=== PATIENT | male | born 1965 | race Caucasian/White ===

== ENCOUNTER → 2017-08-19 | Outpatient (CLI) | payer OTHER ==
[~2017-08-19] MED LIST: ARIP1TAB8 PO; CETI10TA10 PO; FISHOIL PO; MELO15TA10 PO; OMEP20CA9 PO; RISP1TAB68 PO; SIMV20TA5 PO; VENL100T2 PO; [UNRECOGNIZED DRUG - OTHER] PO
== END | disposition home or self-care (01) ==
LOC: C.LAB1850 10:54
PROVIDERS: ATTEND Internal Medicine Endocrinology, Diabetes & Metabolism
DX: E29.1 Testicular hypofunction (principal)

== ENCOUNTER 2018-05-27 03:27 | Inpatient (IN) | payer OTHER ==
[~2018-05-27] VITALS: Ht 185.4 cm; Wt 125.0 kg
--- NOTE | 2018-05-27 03:52 | EMERGENCY ROOM VISIT NOTE ---
History Report prepared by Alfredo: Reyes Lozada Under the Supervision of: Dr. Negrita Redman D.O. First contact with patient: 03:42 Chief Complaint: RESPIRATORY PROBLEMS Stated Complaint: HAVING HARD TIME BREATHING,SEVERE IN LWR RT SIDE History of Present Illness The patient is a 52 year old male who presents to the Emergency Room with complaints of constant SOB beginning today. The patient states that he started having respiratory difficulty five days ago. He notes that he was diagnosed with right-sided pneumonia and placed on Augmentin and Zithromax. He reports that he had a coughing spell last night when he laid down. The patient states that since then, he has been SOB and has been having right lower abdominal pain that stretches around to his lower back. He notes that his coughing worsens when he lies down. He reports that he becomes SOB easily when he walks around. The patient states that he did not become SOB with exertion last week before the onset of his symptoms. He notes that he took Tylenol with no relief of his symptoms. He denies any fever, chills, and leg cramping/swelling. He reports that he does not have any previous history of pneumonia, diabetes, hernias, and hypertension. The patient states that he has a history of depression and is visually impaired. He notes that he has had a cholecystectomy. He reports that he does not smoke cigarettes. Source of History: patient Onset: today Position: chest Quality: other (SOB) Timing: constant Modifying Factors (Worsening): exertion Associated Symptoms: + cough, + abdominal pain, + back pain, No fevers, No chills Note: The patient also denies any leg cramping/swelling. Review of Systems See HPI for pertinent positives & negatives. A total of 10 systems reviewed and were otherwise negative. Past Medical & Surgical Medical Problems: (1) Depression (2) Pneumonia (3) Visual impairment Surgical Problems: (1) H/O knee surgery (2) H/O shoulder surgery (3) History of cholecystectomy Family History Cancer Diabetes mellitus Hypertension Social History Smoking Status: Never Smoker Marital Status: Housing Status: lives with family Occupation Status: disabled Current/Historical Medications Scheduled Aripiprazole (Abilify), 10 MG PO QPM Cetirizine Hcl (Zyrtec), 10 MG PO DAILY Cholecalciferol (Vitamin D3), 2 TAB PO DAILY Fluticasone Propionate (Nasal) (Flonase Allergy Relief), 1 SPRAY ANTHONY BID Gabapentin (Neurontin), 300 MG PO BID Hydrocortisone (Hydrocortisone), 1 APPLN TD BID Melatonin-Pyridoxine (Melatonin), 3 MG PO HS Meloxicam (Mobic), 15 MG PO DAILY Multiple Vitamins W/ Minerals (Ocuvite Eye + Multi), 2 TABS PO BID Multiple Vitamins W/ Minerals (Preservision Areds), 2 CAP PO DAILY Yxicdykd-Vskuenktoe-Lofvymknp (Bacitracin/Neomycin/Polym), 1 APPLN TD DAILY Omeprazole (Prilosec), 20 MG PO BID Simvastatin (Zocor), 40 MG PO QPM Testosterone (Androgel Pump), 40.5 MG TOP DAILY Venlafaxine Hcl (Venlafaxine Hcl Er), 1 TAB PO BID Scheduled PRN Sildenafil Citrate (Viagra), 100 MG PO UD PRN for SEXUAL ACTIVITY Allergies Coded Allergies: No Known Allergies (Verified , `, 05/27/18) Physical Exam Vital Signs Date Time Temp Pulse Resp B/P (MAP) Pulse Ox O2 Delivery O2 Flow Rate FiO2 05/27/18 05:58 99 20 131/76 93 Nasal Cannula 2.0 05/27/18 05:18 92 Nasal Cannula 2.0 05/27/18 04:18 95 05/27/18 03:31 36.6 104 24 155/95 91 Room Air Physical Exam General: Appears extremely uncomfortable with any type of movement. HEENT: Head - normocephalic and atraumatic Pupils are equal, round, and reactive to light. Extraocular eye muscles are intact, and sclera are anicteric. Nose - moist nasal mucosa without discharge. Mouth - moist buccal mucosa. Oropharynx is nonerythematous and there is no tonsillar exudate or edema noted. Neck: Supple; no JVD, nuchal rigidity, cervical lymphadenopathy, or auscultated bruits. Heart: Regular rate and rhythm. There is a normal S1 and S2 with no murmurs, clicks, or gallops appreciated. Lungs: No wheezes or rales. Diminished breath sounds with rhonchi over entire right lower lung. Abdomen: Soft, nondistended, with good bowel sounds. There are no palpable pulsatile masses or hepatosplenomegaly. There is no guarding, rigidity, or rebound noted. Pain to palpation over RLQ. Back: Pain to palpation over right flank and right lower back. Extremities: No evidence of cyanosis, clubbing, or edema. There are easily palpable peripheral pulses. Skin: warm and dry with good turgor and no rashes. Medical Decision & Procedures ER Provider Diagnostic Interpretation: Radiology results as stated below per my review and the radiologist's interpretation: CTA CHEST: No evidence for pulmonary embolism. Patchy ground-glass opacities at the lung bases and in the perihilar regions. Interlobular septal thickening at the lung bases and peribronchial thickening and small bilateral layering pleural effusions noted posteriorly. The constellation of these findings is most consistent with pulmonary edema pattern. Infection, predominantly in the ore consolidative areas of the lower lobes is difficult to entirely exclude. The thoracic aorta is unremarkable. The cardiac chambers are prominent. No pericardial effusion. Nonspecific paratracheal and prevascular lymph nodes are presumed reactive. Cholecystectomy clips incidentally noted. Radiologist: Héctor Armenta MD. Laboratory Results 05/27/18 04:00 Red Blood Count 5.15, Mean Corpuscular Volume 91.8, Mean Corpuscular Hemoglobin 30.9, Mean Corpuscular Hemoglobin Concent 33.6, Mean Platelet Volume 10.7, Neutrophils (%) (Auto) 80.6, Lymphocytes (%) (Auto) 8.3, Monocytes (%) (Auto) 9.5, Eosinophils (%) (Auto) 0.8, Basophils (%) (Auto) 0.2, Neutrophils # (Auto) 8.66, Lymphocytes # (Auto) 0.89, Monocytes # (Auto) 1.02, Eosinophils # (Auto) 0.09, Basophils # (Auto) 0.02 05/27/18 04:00 Test 05/27/18 04:00 White Blood Count 10.74 K/uL (4.8-10.8) Red Blood Count 5.15 M/uL (4.7-6.1) Hemoglobin 15.9 g/dL (14.0-18.0) Hematocrit 47.3 % (42-52) Mean Corpuscular Volume 91.8 fL (80-100) Mean Corpuscular Hemoglobin 30.9 pg (25-34) Mean Corpuscular Hemoglobin Concent 33.6 g/dl (32-36) Platelet Count 211 K/uL (130-400) Mean Platelet Volume 10.7 fL (7.4-10.4) Neutrophils (%) (Auto) 80.6 % Lymphocytes (%) (Auto) 8.3 % Monocytes (%) (Auto) 9.5 % Eosinophils (%) (Auto) 0.8 % Basophils (%) (Auto) 0.2 % Neutrophils # (Auto) 8.66 K/uL (1.4-6.5) Lymphocytes # (Auto) 0.89 K/uL (1.2-3.4) Monocytes # (Auto) 1.02 K/uL (0.11-0.59) Eosinophils # (Auto) 0.09 K/uL (0-0.5) Basophils # (Auto) 0.02 K/uL (0-0.2) RDW Standard Deviation 45.7 fL (36.4-46.3) RDW Coefficient of Variation 13.6 % (11.5-14.5) Immature Granulocyte % (Auto) 0.6 % Immature Granulocyte # (Auto) 0.06 K/uL (0.00-0.02) Anion Gap 10.0 mmol/L (3-11) Est Creatinine Clear Calc Drug Dose 103.3 ml/min Estimated GFR () 84.0 Estimated GFR (Non- 72.5 BUN/Creatinine Ratio 17.4 (10-20) Calcium Level 8.4 mg/dl (8.5-10.1) Troponin I < 0.015 ng/ml (0-0.045) Pro-B-Type Natriuretic Peptide 1116 pg/ml (0-900) Laboratory results per my review. Medications Administered Medications (Trade) Dose Ordered Sig/Rachel Route Start Time Stop Time Status Last Admin Dose Admin Ketorolac Tromethamine (Toradol Inj) 30 mg NOW STAT IV 05/27/18 03:56 05/27/18 03:57 DC 05/27/18 04:08 30 MG Oxycodone/ Acetaminophen (Percocet 5-325mg Tab) 2 tab NOW STAT PO 05/27/18 03:56 05/27/18 03:57 DC 05/27/18 04:09 2 TAB Hydromorphone HCl (Dilaudid Inj) 2 mg NOW STAT IV 05/27/18 05:21 05/27/18 05:22 DC 05/27/18 05:26 2 MG Procedure Medications Administered: Oxycodone/Acetaminophen 2 tab PO, Toradol Inj 30mg IV, and Dilaudid Inj 2mg IV. ECG Per My Interpretation Indication: SOB/dyspnea Rate (beats per minute): 97 Rhythm: normal sinus Findings: LBBB, no ectopy, other (No obvious ischemia) Comparison ECG Date: no prior available ED Course 0344: The patient was evaluated in room A2. A complete history and physical examination were performed. Nursing notes and previous electronic medical records were reviewed. IV lock was established and labs were drawn as above. An EKG was obtained as described above. 0356: Oxycodone/Acetaminophen 2 tab PO, Toradol Inj 30mg IV 0519: I reevaluated and updated the patient. He only had mild pain relief. He notes that his pain worsens when he takes a deep breath. His oxygen saturation dropped to 88% and he was placed on supplemental oxygen. The patient will go for CT scan of the chest. 0521: Dilaudid Inj 2mg IV 0609: Upon reevaluation, I discussed findings and results with the patient. He verbalized agreement of the treatment plan. I spoke with Dr. Kong, resident disability liaison officer for Dr. Paul of the [facility] Hospitalist Service. The patient will be evaluated for further management and care. 0614: I rechecked the patient. The pain medication seemed to help with his abdominal pain and back pain. Medical Decision The patient is a 52 year old male who presents to the Emergency Room with complaints of constant SOB beginning today. Differential diagnoses include: PE, empyema, CHF, pneumonia, and pleural effusion. Lab Results Show: BNP 1116. Negative troponin. Glucose 123. BUN 20. Creatinine 1.1. Normal H&H. Normal WBC. This is a 52-year-old male patient presents to the emergency department with significant right lower quadrant and right flank pain that developed after a coughing fit where he strained that part of his abdomen and back. While I was examining the patient and discussing the situation with him, he appeared quite dyspneic with conversation. He was noted to be hypoxic. He was placed on supplemental oxygen. He was given analgesia to control the pain. He went for a CT scan of the chest to rule out PE. This revealed no evidence of PE but there was some opacities bilaterally with pulmonary edema. I suggested the patient be admitted. I discussed the case with the [facility] Hospitalist and they will evaluate for further management. The patient has no history of congestive heart failure. It seems that he is failing outpatient therapy for his pneumonia. He is hemodynamic is stable at this time. Medication Reconcilliation Current Medication List: was personally reviewed by me Blood Pressure Screening Patient's blood pressure: Elevated blood pressure Elevated blood pressure will be monitored by hospitalist. Consults Time Called: 607 Consulting Physician: Dr. Kong, resident disability liaison officer for Dr. Paul - Hospitalist, [facility] Returned Call: 06 Discussed the patient's case. The patient will be evaluated for further management. Impression Primary Impression: Hypoxia Additional Impression: Pulmonary edema Scribe Attestation The scribe's documentation has been prepared under my direction and personally reviewed by me in its entirety. I confirm that the note above accurately reflects all work, treatment, procedures, and medical decision making performed by me. Departure Information Dispostion Being Evaluated By Hospitalist Referrals Matthew Andrew PA-C (PCP) Patient Instructions My [facility] Problem Qualifiers Additional Impression: Pulmonary edema Chronicity: acute Qualified Codes: J81.0 - Acute pulmonary edema
[2018-05-27] MEDS ORDERED: OXYCODONE/ACETAMINOPHEN 5-325 TAB PO STA (03:56)
[2018-05-27] MEDS ORDERED: KETOROLAC TROMETHAMINE 30 MG/ML VIAL IV STA (03:56)
[2018-05-27] MEDS ORDERED: OPTIRAY 320 IV PRN (04:00)
[2018-05-27 04:11] LABS: BASO % 0.2 %; BASO ABS # 0.02 K/uL (0-0.2); EOS % 0.8 %; EOS ABS # 0.09 K/uL (0-0.5); HEMATOCRIT 47.3 % (42-52); HEMOGLOBIN 15.9 g/dL (14.0-18.0); IG# 0.06 K/uL (0.00-0.02); LYMPH % 8.3 %; LYMPH ABS # 0.89 K/uL (1.2-3.4); MEAN CELL VOLUME 91.8 fL (80-100); MEAN CORPUSCULAR HEMOGLOBIN 30.9 pg (25-34); MEAN CORPUSCULAR HGB CONC 33.6 g/dl (32-36); MEAN PLATELET VOLUME 10.7 fL (7.4-10.4); MONO % 9.5 %; MONO ABS # 1.02 K/uL (0.11-0.59); NEUT % 80.6 %; NEUT ABS # 8.66 K/uL (1.4-6.5); PLATELET COUNT 211 K/uL (130-400); RED CELL DISTRIBUTION WIDTH CV 13.6 % (11.5-14.5); RED CELL DISTRIBUTION WIDTH SD 45.7 fL (36.4-46.3); WHITE BLOOD COUNT 10.74 K/uL (4.8-10.8)
[2018-05-27 04:32] LABS: BLOOD UREA NITROGEN 20 mg/dl (7-18); CALCIUM 8.4 mg/dl (8.5-10.1); CARBON DIOXIDE 21 mmol/L (21-32); CREATININE 1.14 mg/dl (0.60-1.40); GLUCOSE 123 mg/dl (70-99); POTASSIUM 4.2 mmol/L (3.5-5.1); SODIUM 139 mmol/L (136-145)
[2018-05-27] MEDS ORDERED: HYDROmorphone INJ 2 MG/ML SYR/VIAL IV STA (05:21)
[2018-05-27] MEDS ORDERED: SIMV40TA2 PO (06:05)
[2018-05-27] MEDS ORDERED: CHOL1000 PO (06:05)
[2018-05-27] MEDS ORDERED: VENL150T33 PO (06:06)
[2018-05-27] MEDS ORDERED: [UNRECOGNIZED DRUG - CODE] (06:09)
[2018-05-27] MEDS ORDERED: GABA-113 PO (06:09)
[2018-05-27] MEDS ORDERED: FLUT0.15 NAE (06:09)
[2018-05-27] MEDS ORDERED: SILD100T PO (06:14)
[2018-05-27] MEDS ORDERED: MULT15TA2 PO (06:17)
[2018-05-27] MEDS ORDERED: MELA1TAB3 PO (06:18)
[2018-05-27] MEDS ORDERED: ECHCCRMCMP TD (06:20)
[2018-05-27] MEDS ORDERED: TEST5GEL TOP (06:23)
[2018-05-27] MEDS ORDERED: NEOMOIN TD (06:24)
[2018-05-27] MEDS ORDERED: MULTCAP33 PO (06:25)
--- NOTE | 2018-05-27 06:58 | DIAGNOSTIC IMAGING REPORT ---
(CHEST FOR PE) ANGIO WITH CT DOSE: 733.71 mGy.cm HISTORY: 52 years-old Male with . Presents with acute shortness of breath and reported right-sided pneumonia. TECHNIQUE: Multiple CTA images of the chest were obtained after the intravenous administration of 104 ml Optiray 320. Coronal and sagittal MIPS were obtained from the axial data set and were submitted for review. A dose lowering technique was utilized adhering to the principles of ALARA. COMPARISON: None. FINDINGS: CTA: Mild multichamber cardiac enlargement. No pericardial effusion. Coronary arterial calcifications are noted. The left heart structures and aorta are not well opacified secondary to contrast bolus timing. No thoracic aortic aneurysm or dissection. The imaged great vessels appear patent. The pulmonary arterial tree is opacified to the level of the proximal subsegmental branches and demonstrates no focal filling defects to suggest pulmonary thromboembolic disease. CT CHEST: Homogeneous appearance of the thyroid. Enlarged subcarinal lymph node measures 2.1 x 1.2 cm. Mildly enlarged 1.0 cm lower left hilar lymph node. Paratracheal lymph nodes measure up to 11 mm in short axis. AP window lymph nodes measure up to 9 mm. Small layering bilateral pleural effusions. Bilateral multi segmental distribution of intralobular septal thickening with thickening of the bronchovascular bundles. Layering groundglass densities are seen about the fissures. Bronchovascular distribution of consolidative and groundglass opacities are noted within all lobes bilaterally, predominantly within the basal segments of the lower lobes. The central airways are patent. Prior cholecystectomy. No acute process of the imaged upper abdomen. Soft tissues are within normal limits. The bones appear intact. Multilevel spondylitic spurring of the spine. IMPRESSION: 1. No acute aortic pathology or evidence of pulmonary thromboembolic disease. 2. Cardiomegaly with small layering bilateral pleural effusions and bilateral interlobular septal thickening is noted along with thickening of the bronchovascular bundles suggesting interstitial pulmonary edema. Additionally, there are scattered bronchovascular distribution of consolidative and groundglass opacities within all lobes bilaterally, predominantly within the basal segments of the lower lobes suggesting alveolar pulmonary edema with superimposed bronchopneumonia also within the differential. 3. Prior cholecystectomy. The above report was generated using voice recognition software. It may contain grammatical, syntax or spelling errors. Electronically signed by: Rodrick Jiang M.D. 05/27/2018 6:56 AM Dictated Date/Time: 05/27/2018 6:48 AM
[2018-05-27 07:40] VITALS: O2SAT 93; Ht 185.4 cm; Wt 125.0 kg
[2018-05-27] MEDS ORDERED: FUROSEMIDE 40 MG/4 ML VIAL IV STA (08:38)
[2018-05-27] MEDS ORDERED: ACETAMINOPHEN 500 MG TAB PO PRN (08:45)
[2018-05-27] MEDS ORDERED: MAGNESIUM HYDROXIDE SUSP 30 ML UDC PO PRN (08:45)
[2018-05-27] MEDS ORDERED: KETOROLAC TROMETHAMINE 30 MG/ML VIAL IV PRN (08:45)
[2018-05-27] MEDS ORDERED: ACETAMINOPHEN 325 MG TAB PO PRN (08:45)
[2018-05-27] MEDS ORDERED: HYDROCODONE/ACETAMINOPHEN 7.5/325MG TAB PO PRN (08:45)
[2018-05-27] MEDS ORDERED: ONDANSETRON INJ 2 MG/ML 2 ML VIAL IV PRN (08:45)
[2018-05-27] MEDS ORDERED: ALUMINUM/MAGNESIUM/SIMETH (MAALOX MAX) 30 ML UDC PO PRN (08:45)
[2018-05-27] MEDS ORDERED: GUAIFENESIN/CODEINE 100MG/10MG 5ML UDC PO PRN (08:45)
[2018-05-27] MEDS ORDERED: NITROGLYCERIN 0.4 MG SL PER TAB CHARGE SL PRN (08:45)
[2018-05-27] MEDS ORDERED: MULTIPLE VITAMINS PO SCH (09:00)
[2018-05-27] MEDS ORDERED: MINERALS PO SCH (09:00)
[2018-05-27] MEDS ORDERED: VENLAFAXINE HCL XR 150 MG CAPXR PO SCH (09:00)
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
[2018-05-27 09:54] LABS: ALBUMIN 3.4 gm/dl (3.4-5.0); TOTAL PROTEIN 7.7 gm/dl (6.4-8.2)
[2018-05-27 11:03] VITALS: BP 107/73; PULSE 90; TEMP 36.5; O2SAT 95
[2018-05-27] MEDS ORDERED: PERFLUTREN LIPID MICROSPHERE (DEFINITY) IV ONE (11:26)
[2018-05-27] MEDS: ENOXAPARIN 40 MG/0.4 ML SYR SC SCH (11:57)
[2018-05-27] MEDS: FLUTICASONE PROPIONATE NA SPR 16 GM BTL NAE SCH ×2 (11:57→20:09)
[2018-05-27] MEDS: CEROVITE ADV FORMULA TAB PO SCH ×2 (12:00→20:10)
[2018-05-27] MEDS: GUAIFENESIN 600 MG TABCR PO SCH ×2 (12:02→20:10)
[2018-05-27] MEDS: LEVOFLOXACIN 750 MG TAB PO SCH (12:02)
[2018-05-27] MEDS: GABAPENTIN 300 MG CAP PO SCH ×2 (12:03→20:10)
[2018-05-27] MEDS: CETIRIZINE HCL 10 MG TAB PO SCH (12:03)
[2018-05-27] MEDS: CHOLECALCIFEROL 1000 INTER.UNIT TAB PO SCH (12:03)
[2018-05-27] MEDS: PANTOprazole SOD 40 MG TAB PO SCH (12:04)
--- NOTE | 2018-05-27 12:08 | ECHOCARDIOGRAM REPORT ---
*NOTICE TO RECEIVING CONSTITUTION PARTY AGENCY This information is strictly Confidential and protected under [place] law. [place] law prohibits you from making any further disclosure of this information unless further disclosure is expressly permitted by the written consent of the person to whom it pertains or is authorized by law. A general authorization for the release of medical or other information is not sufficient for this purpose. Hospital accepts no responsibility if the information is made available to any other person, INCLUDING THE PATIENT. Interpretation Summary * Name: ADRIANA MARCELINO Study Date: 05/27/2018 10:43 AM BP: 111/70 mmHg * Patient Location: [facility] HR: 78 * : 1965 (M/d/yyyy) Gender: Male Height: 73 in * Age: 52 yrs Ethnicity: CA Weight: 279 lb * Ordering Physician: Sebastian Lee * Referring Physician: Self, Referred * Performed By: Henny Husain RDCS * * Reason For Study: CHF, LEFT BUNDLE BRANCH BLOCK * BSA: 2.5 m2 * -- Conclusions -- * 1. Moderately dilated LV with normal wall thickness.. * 2. Severe global LV dysfunction. LVEF 20-25%. Abnormal septal motion consistent with conduction abnormality. * 3. Normal RV size and function. * 4. Mild mitral regurgitation. * 5. No prior studies for comparison. Procedure Details * A contrast injection of Definity was performed to improve assessment of LV function. * Contrast was injected into an intravenous site in the right arm. * One vial of Definity ultrasound contrast was diluted in normal saline to a total volume of 10 ml. A total of '2' ml of solution was administered during imaging. * Lot # [id number] of Definity utilized for procedure. * Expiration date APR 23. * The attending nurse who injected the contrast agent was BASIL EPPS RN. Left Ventricle * The left ventricle is moderately dilated. * There is normal left ventricular wall thickness. * Ejection Fraction = 20-25%. * There is severe global hypokinesis of the left ventricle. * Septal motion is consistent with conduction abnormality. Right Ventricle * The right ventricle is grossly normal size. * The right ventricular systolic function is normal as assessed by tricuspid annular plane systolic excursion (TAPSE) (normal >1.5 cm). Atria * The left atrium is moderately dilated. * Right atrial size is normal. * No ASD detected; PFO is not assessed. Mitral Valve * The mitral valve is grossly normal. * There is no mitral valve stenosis. * There is mild mitral regurgitation. Aortic Valve * The aortic valve opens well. * The aortic valve is trileaflet. * No hemodynamically significant valvular aortic stenosis. * There is no significant aortic regurgitation. Pulmonic Valve * The pulmonary valve is inadequately visualized, but the Doppler data is adequate for interpretation. * There is no pulmonic valvular stenosis. * Trace pulmonic valvular regurgitation. Great Vessels * The aortic root and proximal ascending aorta are normal sized. Pericardium/Pleural * There is no pericardial effusion. Great Vessels * IVC < 2.1, < 50% change with respiration. Est RA 8 mmHg. MMode 2D Measurements and Calculations IVSd 0.84 cm IVSs 0.91 cm LVIDd 6.4 cm LVIDs 5.7 cm LVPWd 1.2 cm LVPWs 1.4 cm IVS/LVPW 0.70 FS 9.8 % EDV(Teich) 205.4 ml ESV(Teich) 162.3 ml EF(Teich) 21.0 % EDV(cubed) 256.9 ml ESV(cubed) 188.7 ml EF(cubed) 26.6 % % IVS thick 8.6 % % LVPW thick 17.3 % LV mass(C)d 279.1 grams LV mass(C)dI 112.6 grams/m\S\2 LV mass(C)s 278.1 grams LV mass(C)sI 112.2 grams/m\S\2 SV(Teich) 43.0 ml SI(Teich) 17.4 ml/m\S\2 SV(cubed) 68.3 ml SI(cubed) 27.5 ml/m\S\2 Ao root diam 3.4 cm Ao root area 8.9 cm\S\2 LA dimension 4.4 cm LA/Ao 1.3 LVAd ap4 51.2 cm\S\2 LVLd ap4 9.4 cm EDV(MOD-sp4) 226.4 ml EDV(sp4-el) 236.6 ml LVAs ap4 41.6 cm\S\2 LVLs ap4 8.1 cm ESV(MOD-sp4) 175.2 ml ESV(sp4-el) 181.1 ml EF(MOD-sp4) 22.6 % EF(sp4-el) 23.4 % LVAd ap2 33.1 cm\S\2 LVLd ap2 8.2 cm EDV(MOD-sp2) 109.9 ml EDV(sp2-el) 113.5 ml LVAs ap2 28.6 cm\S\2 LVLs ap2 8.0 cm ESV(MOD-sp2) 82.7 ml ESV(sp2-el) 87.1 ml EF(MOD-sp2) 24.7 % EF(sp2-el) 23.2 % LVLd %diff -14.67 % EDV(MOD-bp) 170.2 ml LVLs %diff -1.33 % ESV(MOD-bp) 120.2 ml EF(MOD-bp) 29.4 % SV(MOD-sp4) 51.2 ml SI(MOD-sp4) 20.7 ml/m\S\2 SV(MOD-sp2) 27.2 ml SI(MOD-sp2) 11.0 ml/m\S\2 SV(MOD-bp) 50.1 ml SI(MOD-bp) 20.2 ml/m\S\2 SV(sp4-el) 55.5 ml SI(sp4-el) 22.4 ml/m\S\2 SV(sp2-el) 26.4 ml SI(sp2-el) 10.6 ml/m\S\2 Doppler Measurements and Calculations MV E max ravi 67.2 cm/sec MV A max ravi 37.4 cm/sec MV E/A 1.8 MV dec time 0.15 sec Ao V2 max 98.1 cm/sec Ao max PG 3.9 mmHg Ao max PG (full) 2.6 mmHg LV V1 max PG 1.3 mmHg LV V1 max 56.6 cm/sec
[2018-05-27 15:04] VITALS: BP 125/83; PULSE 82; TEMP 36.6; O2SAT 94
[2018-05-27] MEDS ORDERED: POTASSIUM CHLORIDE 20 MEQ TABCR PO STA (15:36)
[2018-05-27] MEDS ORDERED: FUROSEMIDE INJ 40 MG in SYRINGE 0 ML IV ONE (16:30)
--- NOTE | 2018-05-27 17:21 | Cardiology Consultation ---
Cardiology Consultation Date of Consultation: May 27, 2018. Requesting Physician: Dr. 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 He and his do note that he has had dyspnea on exertion when walking to his mailbox and on other occasions for probably close to a year, he has actually had appointments regarding it through the [place] system but does not believe he has had an electrocardiogram or any other cardiac testing. His symptoms have worsened recently, possibly related to eating a lot of salty food over the weekend, but he also developed right flank pain which prompted a visit to the emergency room. In the emergency room he was found to be in congestive heart failure and echocardiography has shown severe left ventricular dysfunction. He was therefore admitted today. He also describes on further questioning orthopnea and a cough with laying down as well as peripheral edema. He has never had chest discomfort and does not have chest discomfort with exertion. He was recently diagnosed with "pneumonia ", however that was several days ago when he presented with worsening shortness of breath it does not sound as though chest x-ray or other cardiac evaluation was performed. He was started on antibiotic. Past Medical/Surgical History (1) Visual impairment (2) H/O knee surgery (3) H/O shoulder surgery (4) History of cholecystectomy Family History Cancer Diabetes mellitus Hypertension Social History Smoking Status: Never Smoker History of Alcohol Use: Yes ("depends") Review of Systems Constitutional: No fever, No weight loss, No weakness Respiratory: + see HPI, + cough, + shortness of breath, + dyspnea on exertion, No wheezing Cardiac: + see HPI, + orthopnea, + edema, No chest pain, No PND, No palpitations Abdomen: No pain, No nausea, No vomiting, No diarrhea, No GI bleeding Male : No urinary frequency, No nocturia more than once/night, No slowing stream, No sexual dysfunction Neurologic: No paralysis, No weakness, No numbness/tingling, No balance problems Heme: No abnormal bleeding/bruising, No clotting problems Endo: No fatigue Skin: No problem reported All Other Systems: Reviewed and Negative Allergies Coded Allergies: No Known Allergies (Verified , `, 05/27/18) Medications Current Inpatient Medications Medications (Trade) Dose Ordered Sig/Rachel Route Start Time Stop Time Status Last Admin Dose Admin Ioversol (Optiray 320) 125 ml UD PRN IV 05/27/18 04:00 05/31/18 03:59 Enoxaparin Sodium (Lovenox Inj) 40 mg Q24H SC 05/27/18 11:00 06/26/18 10:59 05/27/18 11:57 40 MG Acetaminophen (Tylenol Tab) 650 mg Q4H PRN PO 05/27/18 08:45 06/26/18 08:44 Al Hydrox/Mg Hydrox/Simethicone (Maalox Max Susp) 15 ml Q4H PRN PO 05/27/18 08:45 06/26/18 08:44 Magnesium Hydroxide (Milk Of Magnesia Susp) 30 ml Q12H PRN PO 05/27/18 08:45 06/26/18 08:44 Ondansetron HCl (Zofran Inj) 4 mg Q6H PRN IV 05/27/18 08:45 06/26/18 08:44 Nitroglycerin (Nitrostat Tab) 0.4 mg UD PRN SL 05/27/18 08:45 06/26/18 08:44 Aripiprazole (Abilify Tab) 10 mg QPM PO 05/27/18 21:00 06/26/18 20:59 Cetirizine HCl (zyrTEC TAB) 10 mg DAILY PO 05/27/18 09:00 06/26/18 08:59 05/27/18 12:03 10 MG Cholecalciferol (Vitamin D Tab) 2,000 inter.unit DAILY PO 05/27/18 09:00 06/26/18 08:59 05/27/18 12:03 2,000 INTER.UNIT Fluticasone Propionate (Flonase Nasal [place]) 2 sprays BID ANTHONY 05/27/18 09:00 06/26/18 08:59 05/27/18 11:57 2 SPRAYS Gabapentin (Neurontin Cap) 300 mg BID PO 05/27/18 09:00 06/26/18 08:59 05/27/18 12:03 300 MG Multivitamins/ Minerals (Multivitamin W/ Minerals Tab) 2 tab BID PO 05/27/18 09:00 06/26/18 08:59 05/27/18 12:00 2 TAB Simvastatin (Zocor Tab) 40 mg QPM PO 05/27/18 21:00 06/26/18 20:59 Pantoprazole Sodium (Protonix Tab) 40 mg QAM PO 05/27/18 09:00 06/26/18 08:59 05/27/18 12:04 40 MG Levofloxacin (Levaquin Tab) 750 mg DAILY@11 PO 05/27/18 11:00 06/03/18 10:59 05/27/18 12:02 750 MG Ketorolac Tromethamine (Toradol Inj) 30 mg Q6H PRN IV 05/27/18 08:45 06/01/18 08:44 Acetaminophen (Tylenol Tab) 1,000 mg Q8 PRN PO 05/27/18 08:45 06/26/18 08:44 Acetaminophen/ Hydrocodone Bitart ([place] 7.5/325 Tab) 1 tab Q4H PRN PO 05/27/18 08:45 06/10/18 08:44 Codeine Phosphate/ Guaifenesin (Robitussin-AC Sugar Free Syrup) 5 ml Q6H PRN PO 05/27/18 08:45 06/26/18 08:44 Guaifenesin (Mucinex Contr Rel Tab) 600 mg Q12 PO 05/27/18 09:00 06/26/18 08:59 05/27/18 12:02 600 MG Furosemide 40 mg/ Syringe 4 ml @ 4 mls/min ONE ONCE IV 05/27/18 16:30 05/27/18 16:31 Magnesium Oxide (Mag-Ox Tab) 400 mg BID PO 05/27/18 21:00 06/26/18 20:59 Physical Exam Vital Signs Past 12 Hours Date Time Temp Pulse Resp B/P (MAP) Pulse Ox O2 Delivery O2 Flow Rate FiO2 05/27/18 15:04 36.6 82 20 125/83 (97) 94 Nasal Cannula 2.0 05/27/18 11:03 36.5 90 20 107/73 (84) 95 Nasal Cannula 2.0 05/27/18 10:00 98 20 106/73 98 Nasal Cannula 05/27/18 09:00 82 20 111/70 95 Nasal Cannula 2.0 05/27/18 08:13 93 12 120/82 96 Nasal Cannula 3.0 05/27/18 07:40 93 Nasal Cannula 3.0 05/27/18 07:10 93 Nasal Cannula 3.0 05/27/18 06:50 94 05/27/18 06:50 88 16 108/81 93 Nasal Cannula 3.0 05/27/18 05:58 99 20 131/76 93 Nasal Cannula 2.0 05/27/18 05:18 92 Nasal Cannula 2.0 05/27/18 04:18 95 Constitutional: General Apperance: heathly-appearing Level of Distress: NAD Psychiatric: Mental Status: active & alert Head: normocephalic Eyes: EOM: EOMI ENMT: normal ENT inspection, hearing grossly normal Neck: supple, no masses Lungs: Respiratory effort: no dyspnea, good air movement Auscultation: no wheezing, rales/crackles on the left, rales/crackles on the right Cardiovascular: Heart Auscultation: RRR, no murmurs, no rubs, no gallops Peripheral Pulses: Bruits: none appreciated Abdomen: Bowel Sounds: normal Inspection & Palpation: soft, no tenderness, guarding & rebound, no masses Musculoskeletal: normal strength (5/5 throughout) Neurologic: Cranial Nerves: grossly intact Sensation: grossly intact Data Laboratory Results: Last 24 Hours Test 05/27/18 04:00 White Blood Count 10.74 K/uL Red Blood Count 5.15 M/uL Hemoglobin 15.9 g/dL Hematocrit 47.3 % Mean Corpuscular Volume 91.8 fL Mean Corpuscular Hemoglobin 30.9 pg Mean Corpuscular Hemoglobin Concent 33.6 g/dl Platelet Count 211 K/uL Mean Platelet Volume 10.7 fL Neutrophils (%) (Auto) 80.6 % Lymphocytes (%) (Auto) 8.3 % Monocytes (%) (Auto) 9.5 % Eosinophils (%) (Auto) 0.8 % Basophils (%) (Auto) 0.2 % Neutrophils # (Auto) 8.66 K/uL Lymphocytes # (Auto) 0.89 K/uL Monocytes # (Auto) 1.02 K/uL Eosinophils # (Auto) 0.09 K/uL Basophils # (Auto) 0.02 K/uL RDW Standard Deviation 45.7 fL RDW Coefficient of Variation 13.6 % Immature Granulocyte % (Auto) 0.6 % Immature Granulocyte # (Auto) 0.06 K/uL Prothrombin Time 10.0 SECONDS Prothromb Time International Ratio 1.0 Sodium Level 139 mmol/L Potassium Level 4.2 mmol/L Chloride Level 108 mmol/L Carbon Dioxide Level 21 mmol/L Anion Gap 10.0 mmol/L Blood Urea Nitrogen 20 mg/dl Creatinine 1.14 mg/dl Est Creatinine Clear Calc Drug Dose 103.3 ml/min Estimated GFR () 84.0 Estimated GFR (Non- 72.5 BUN/Creatinine Ratio 17.4 Random Glucose 123 mg/dl Calcium Level 8.4 mg/dl Magnesium Level 2.1 mg/dl Total Bilirubin 0.3 mg/dl Direct Bilirubin 0.1 mg/dl Aspartate Amino Transf (AST/SGOT) 32 U/L Alanine Aminotransferase (ALT/SGPT) 35 U/L Alkaline Phosphatase 116 U/L Troponin I < 0.015 ng/ml C-Reactive Protein 1.31 mg/dl Pro-B-Type Natriuretic Peptide 1116 pg/ml Total Protein 7.7 gm/dl Albumin 3.4 gm/dl Procalcitonin 0.08 ng/ml Thyroid Stimulating Hormone (TSH) 0.488 uIu/ml Imaging: His echocardiogram shows moderately dilated left ventricle with severe global left ventricular dysfunction and ejection fraction of 20-25%. No significant valvular abnormalities although he does have mild mitral regurgitation. The right ventricle is normal in size and function. EKG: His electrocardiogram this admission shows sinus rhythm with a left bundle branch block pattern and a QRS duration of 154 ms. Telemetry reviewed: Sinus rhythm with PVCs Assessment & Plan 1. Congestive heart failure: He presents with congestive heart failure which is symptomatically much worse over the last week or less, possibly related to eating a lot of salty food the weekend. It sounds as though this is on top of long-standing difficulty with exertion, possibly going back about 1 year. This appears to be due to cardiomyopathy which I suspect has been present for some time. He has not had cardiovascular test so we cannot really tell. 2. 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 I will draw some blood tests, including Lyme, SPEP, SAGE. His cardia myopathy could just be due to the left bundle branch block. We will need to exclude coronary artery disease if these other studies are negative, I would target May 29, 2018 possible. We can discuss this tomorrow. I would like to start him on heart failure medications, tonight I will start carvedilol and tomorrow low-dose SAGE inhibitors. Discussed medical therapy with him and his . 3. Left bundle-branch block: As far as I know he has not had an electrocardiogram for so we cannot determine how long he has had this pattern. It can lead to cardiomyopathy by itself, could also be secondary to a cardiomyopathy. It makes it difficult to tell whether he has had an infarction in the past although he has no symptoms to suggest it. It does however suggest the possibility for improvement with biventricular pacing. Thank you for allowing me to participate in his care.
[2018-05-27 19:59] VITALS: BP 119/77; PULSE 80; TEMP 36.6; O2SAT 94
[2018-05-27] MEDS: SIMVASTATIN 40 MG TAB PO SCH (20:10)
[2018-05-27] MEDS: CARVEDILOL 3.125 MG TAB PO SCH (20:10)
[2018-05-27] MEDS: ARIPIprazole TAB 10 MG TAB PO SCH (20:10)
[2018-05-27] MEDS: MAGNESIUM OXIDE 400 MG TAB PO SCH (21:05)
[2018-05-27 23:08] VITALS: BP 126/76; PULSE 87; TEMP 36.7; O2SAT 93
[2018-05-28] VITALS (7 sets, daily range): BP systolic 118–125; BP diastolic 74–86; PULSE 76–89; TEMP 36.4–36.9; O2SAT 93–97
[2018-05-28 06:55] LABS: CALCIUM 8.8 mg/dl (8.5-10.1); CREATININE 0.98 mg/dl (0.60-1.40); POTASSIUM 3.8 mmol/L (3.5-5.1)
[2018-05-28] MEDS: CETIRIZINE HCL 10 MG TAB PO SCH (08:27)
[2018-05-28] MEDS: CEROVITE ADV FORMULA TAB PO SCH ×2 (08:27→21:22)
[2018-05-28] MEDS: GUAIFENESIN 600 MG TABCR PO SCH ×2 (08:28→21:22)
[2018-05-28] MEDS: CHOLECALCIFEROL 1000 INTER.UNIT TAB PO SCH (08:30)
[2018-05-28] MEDS: LISINOPRIL 2.5 MG TAB PO SCH (08:30)
[2018-05-28] MEDS: CARVEDILOL 3.125 MG TAB PO SCH ×2 (08:31→21:21)
[2018-05-28] MEDS: PANTOprazole SOD 40 MG TAB PO SCH (08:31)
[2018-05-28] MEDS: GABAPENTIN 300 MG CAP PO SCH ×2 (08:31→21:22)
[2018-05-28] MEDS: MAGNESIUM OXIDE 400 MG TAB PO SCH ×2 (08:32→21:20)
[2018-05-28] MEDS: FLUTICASONE PROPIONATE NA SPR 16 GM BTL NAE SCH ×2 (08:32→21:20)
[2018-05-28] MEDS: FUROSEMIDE INJ 40 MG in SYRINGE 0 ML IV SCH ×2 (09:50→17:13)
[2018-05-28] MEDS: POTASSIUM CHLORIDE 20 MEQ TABCR PO SCH ×2 (09:50→21:21)
[2018-05-28] MEDS: ENOXAPARIN 40 MG/0.4 ML SYR SC SCH (11:28)
[2018-05-28] MEDS: LEVOFLOXACIN 750 MG TAB PO SCH (11:28)
--- NOTE | 2018-05-28 15:21 | Cardiology Follow-Up ---
Subjective Date of Service: May 28, 2018. 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 He and his do note that he has had dyspnea on exertion when walking to his mailbox and on other occasions for probably close to a year, he has actually had appointments regarding it through the [place] system but does not believe he has had an electrocardiogram or any other cardiac testing. His symptoms have worsened recently, possibly related to eating a lot of salty food over the weekend, but he also developed right flank pain which prompted a visit to the emergency room. In the emergency room he was found to be in congestive heart failure and echocardiography has shown severe left ventricular dysfunction. He was therefore admitted today. He also describes on further questioning orthopnea and a cough with laying down as well as peripheral edema. He has never had chest discomfort and does not have chest discomfort with exertion. He was recently diagnosed with "pneumonia ", however that was several days ago when he presented with worsening shortness of breath it does not sound as though chest x-ray or other cardiac evaluation was performed. He was started on an antibiotic. Here he appeared to be in congestive heart failure and echocardiography demonstrated severe left ventricular dysfunction. He has been diuresed and started on low-dose beta blockade and SAGE inhibition. Today he feels very well. He feels much better than he did prior to admission, he is having no side effects on carvedilol and lisinopril. Social History Smoking Status: Never Smoker History of Alcohol Use: Yes ("depends") Review of Systems Respiratory: + see HPI, + cough, + shortness of breath, + dyspnea on exertion, No wheezing Cardiac: + see HPI, + orthopnea, + edema, No chest pain, No PND, No palpitations Medications Cardiovascular: Item Value Date Time Lisinopril 2.5 mg 05/28/18 0900 (Zestril Tab) QAM/PO 05/28/18 0830 Furosemide 40 mg/ 4 ml @ 4 mls/min 05/28/18 0900 Syringe BID17/IV 05/28/18 0950 Simvastatin 40 mg 05/27/18 2100 (Zocor Tab) QPM/PO 05/27/182009 Potassium Chloride 20 meq 05/28/18 0900 (Klor-Con Tab) BID/PO 05/28/18 0950 Magnesium Oxide 400 mg 05/27/18 2100 (Mag-Ox Tab) BID/PO 05/28/18 0832 Carvedilol 3.125 mg 05/27/18 2100 (Coreg Tab) BID/PO 05/28/18 0831 Enoxaparin Sodium 40 mg 05/27/18 1100 (Lovenox Inj) Q24H/SC 05/28/18 1128 Objective Vital Signs Past 12 Hours Date Time Temp Pulse Resp B/P (MAP) Pulse Ox O2 Delivery O2 Flow Rate FiO2 05/28/18 11:33 36.9 82 18 118/78 (91) 93 05/28/18 08:00 97 Room Air 2.0 05/28/18 07:24 36.8 89 18 125/83 (97) 97 05/28/18 03:40 36.8 76 20 124/74 (91) 94 Room Air Last Recorded Weight-Kilograms: 124.700 Intake & Output 8-Hour Column 05/28/18 05/29/18 05/29/18 16:00 00:00 08:00 Intake Total 690 ml Output Total 600 ml Balance 90 ml 24-Hour Column 05/29/18 08:00 Intake Total 690 ml Output Total 600 ml Balance 90 ml Physical Exam Constitutional: General Apperance: heathly-appearing Level of Distress: NAD Lungs: Respiratory effort: no dyspnea, good air movement Auscultation: breath sounds normal, no wheezing Cardiovascular: Heart Auscultation: RRR, no murmurs, no rubs, no gallops Peripheral Pulses: Bruits: none appreciated Extremities: no edema Data Laboratory Results: Last 24 Hours Test 05/27/18 17:44 05/28/18 05:45 Iron Level 113 mcg/dl Total Iron Binding Capacity 386 mcg/dl Lyme Disease IgG Antibody NEG Lyme Disease IgM Antibody NEG Sodium Level 138 mmol/L Potassium Level 3.8 mmol/L Chloride Level 106 mmol/L Carbon Dioxide Level 24 mmol/L Anion Gap 8.0 mmol/L Blood Urea Nitrogen 18 mg/dl Creatinine 0.98 mg/dl Est Creatinine Clear Calc Drug Dose 119.2 ml/min Estimated GFR () 100.9 Estimated GFR (Non- 87.1 BUN/Creatinine Ratio 18.7 Random Glucose 104 mg/dl Calcium Level 8.8 mg/dl Magnesium Level 2.2 mg/dl Ferritin 94.4 ng/ml Telemetry reviewed: Sinus rhythm, no significant arrhythmias Assessment and Plan 1. Congestive heart failure: He presented with congestive heart failure which was symptomatically much worse over the last week or less, possibly related to eating a lot of salty food over the weekend. It sounds as though this was on top of long-standing difficulty with exertion, possibly going back about 1 year. This appears to be due to cardiomyopathy which I suspect has been present for some time. He has not had cardiovascular test so we cannot really tell. He feels much better after being diuresed, his cough is improved and he is not short of breath. He has not been exerting himself therefore we do not know if he still has dyspnea on exertion. 2. Cardiomyopathy: This probably represents a nonischemic cardiomyopathy but we do need to exclude reversible causes. His Lyme screen and iron studies are negative, SPEP, SAGE are pending. His cardiomyopathy could just be due to the left bundle branch block. We will need to exclude coronary artery disease, we will plan on cardiac catheterization tomorrow. We can discuss this tomorrow. He is tolerating low-dose carvedilol and lisinopril, I would like to try to increase those prior to discharge however he only started beta-blockade yesterday and SAGE inhibition this morning so would like to wait until after his catheterization to titrate them. 3. Left bundle-branch block: As far as I know he has not had an electrocardiogram so we cannot determine how long he has had this pattern. It can lead to cardiomyopathy by itself, it could also be secondary to a cardiomyopathy. It makes it difficult to tell whether he has had an infarction in the past although he has no symptoms to suggest it. It does however suggest the possibility for improvement with biventricular pacing if no reversible causes found. I discussed catheterization with him and his family who are in the room, and I have tentatively set him up for tomorrow. Thank you for allowing me to participate in his care.
--- NOTE | 2018-05-28 17:12 | Progress Note ---
Subjective Date of Service: May 28, 2018. Subjective Pt evaluation today including: conversation w/ patient, conversation w/ family (, brother both at bedside), physical exam, chart review, lab review, review of inpatient medication list Pain: none PO Intake: normal Voiding: no voiding problems tele stable overnight patient feeling "much better" today no dyspnea at rest cough nearly resolved no further orthopnea O2 weaned off minimal CONTRERAS multiple questions from pt and his family during the visit Problem List Medical Problems: (1) Hypoxia Status: Acute (2) Pulmonary edema Status: Acute Review of Systems Constitutional: No fever, No chills Respiratory: No cough, No sputum Cardiac: No chest pain Abdomen: No pain Objective Vital Signs Date Time Temp Pulse Resp B/P (MAP) Pulse Ox O2 Delivery O2 Flow Rate FiO2 05/28/18 16:07 36.7 76 17 124/78 (93) 95 Room Air 05/28/18 11:33 36.9 82 18 118/78 (91) 93 05/28/18 08:00 97 Room Air 2.0 05/28/18 07:24 36.8 89 18 125/83 (97) 97 05/28/18 03:40 36.8 76 20 124/74 (91) 94 Room Air 05/27/18 23:59 Nasal Cannula 2.0 05/27/18 23:08 36.7 87 20 126/76 (93) 93 Room Air 05/27/18 19:59 36.6 80 18 119/77 (91) 94 Nasal Cannula 2.0 Physical Exam General Appearance: no apparent distress, + obese ENT: pharynx normal Neck: no JVD Respiratory/Chest: no respiratory distress, no accessory muscle use, + rales ( very mild residual rales b/l bases) Cardiovascular: regular rate, rhythm, no gallop, no murmur Abdomen: normal bowel sounds, non tender, soft, no organomegaly Extremities: no pedal edema Neurologic/Psychiatric: alert, oriented x 3 Skin: + pertinent finding (optifoam intact right anterior schrader ) Laboratory Results Last 24 Hours Test 05/27/18 17:44 05/28/18 05:45 Iron Level 113 mcg/dl Total Iron Binding Capacity 386 mcg/dl Lyme Disease IgG Antibody NEG Lyme Disease IgM Antibody NEG Sodium Level 138 mmol/L Potassium Level 3.8 mmol/L Chloride Level 106 mmol/L Carbon Dioxide Level 24 mmol/L Anion Gap 8.0 mmol/L Blood Urea Nitrogen 18 mg/dl Creatinine 0.98 mg/dl Est Creatinine Clear Calc Drug Dose 119.2 ml/min Estimated GFR () 100.9 Estimated GFR (Non- 87.1 BUN/Creatinine Ratio 18.7 Random Glucose 104 mg/dl Calcium Level 8.8 mg/dl Magnesium Level 2.2 mg/dl Ferritin 94.4 ng/ml Assessment and Plan 52yo male with 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 1. acute hypoxic respiratory failure - 2nd to acute systolic CHF. There was some suggestion of pneumonia on his CTA chest but pneumonia is felt to be much less likely given his lack of fever, rapid response to diuresis, normal wbc count, good appetite, etc. Cont IV diuresis. 2. acute systolic CHF - appreciate cardiology consultation and recommendations. His EF is significantly depressed at 20%. Etiology is uncertain. Lyme's testing, ferritin (for hemochromatosis), etc all normal. Could be LBBB-related. Could be ischemic. Plan - cont IV lasix BID. Agree with BB and SAGE. Cath tomorrow to r/o ischemic heart disease as the cause. Symptomatically he is markedly better than yesterday. Repeat cxr in am. If no obvious pneumonia then stop antibiotic therapy. 3. LBBB - I do not have an old EKG to compare. He has had no ischemic symptoms. Troponin was negative. Left heart cath planned for tomorrow. 4. depression with ?bipolar disorder - continue outpatient medications. 5. chronic wound, RLE schrader - appreciate wound care nurse consult and recommendations. 6. DVT proph - lovenox 40mg daily. 7. hyperlipidemia - continue statin agent; CPK and TSH both wnl. 8. FEN - AHA diet, saline lock, BMP/mag in am. 9. visual loss/legal blindness - chronic. Continue eye drops. 10. GERD - PPI. 11. obesity with BMI 36. family extensively updated at bedside again today NPO after PA tonight Continued [facility] stay due to: multiple IV medications needed, other (need for heart cath) Discharge planning: home
[2018-05-28] MEDS: SIMVASTATIN 40 MG TAB PO SCH (21:19)
[2018-05-28] MEDS: ARIPIprazole TAB 10 MG TAB PO SCH (21:20)
[2018-05-29] VITALS (16 sets, daily range): BP systolic 89–117; BP diastolic 59–79; PULSE 71–95; TEMP 36.3–36.7; O2SAT 92–96
[2018-05-29 07:18] LABS: CALCIUM 9.4 mg/dl (8.5-10.1); CREATININE 0.96 mg/dl (0.60-1.40); POTASSIUM 3.8 mmol/L (3.5-5.1)
--- NOTE | 2018-05-29 07:54 | DIAGNOSTIC IMAGING REPORT ---
TWO VIEW CHEST CLINICAL HISTORY: Dyspnea. FINDINGS: PA and lateral chest radiographs are correlated with chest CT dated 05/27/2018. The heart is enlarged. The pulmonary vasculature is noncongested. There is no airspace consolidation typical for pneumonia or pleural effusion. Minimal bibasilar opacities likely represent atelectasis. There is no pneumothorax. The bony thorax appears intact. Cholecystectomy clips are noted in the right upper quadrant. IMPRESSION: Cardiomegaly with no acute cardiopulmonary abnormality. Electronically signed by: Krish Tucker M.D. 05/29/2018 7:53 AM Dictated Date/Time: 05/29/2018 7:51 AM
[2018-05-29] MEDS: CETIRIZINE HCL 10 MG TAB PO SCH (08:24)
[2018-05-29] MEDS: FLUTICASONE PROPIONATE NA SPR 16 GM BTL NAE SCH ×2 (08:24→20:08)
[2018-05-29] MEDS: FUROSEMIDE INJ 40 MG in SYRINGE 0 ML IV SCH ×2 (08:24→17:59)
[2018-05-29] MEDS: GUAIFENESIN 600 MG TABCR PO SCH ×2 (08:25→20:42)
[2018-05-29] MEDS: CHOLECALCIFEROL 1000 INTER.UNIT TAB PO SCH (08:25)
[2018-05-29] MEDS: CEROVITE ADV FORMULA TAB PO SCH ×2 (08:25→20:42)
[2018-05-29] MEDS: MAGNESIUM OXIDE 400 MG TAB PO SCH ×2 (08:25→20:41)
[2018-05-29] MEDS: POTASSIUM CHLORIDE 20 MEQ TABCR PO SCH ×2 (08:26→20:41)
[2018-05-29] MEDS: GABAPENTIN 300 MG CAP PO SCH ×2 (08:26→20:41)
[2018-05-29] MEDS: CARVEDILOL 3.125 MG TAB PO SCH (08:26)
[2018-05-29] MEDS: PANTOprazole SOD 40 MG TAB PO SCH (08:27)
[2018-05-29] MEDS: LISINOPRIL 2.5 MG TAB PO SCH (08:27)
[2018-05-29] MEDS ORDERED: ALPRAZOLAM 0.25 MG TAB PO STA (10:11)
[2018-05-29] MEDS: ENOXAPARIN 40 MG/0.4 ML SYR SC SCH (11:00)
--- NOTE | 2018-05-29 14:16 | Pre Sedation Assessment ---
Pre Sedation Assessment General Date of Sedation: May 29, 2018. Vital Signs Past 12 Hours Date Time Temp Pulse Resp B/P (MAP) Pulse Ox O2 Delivery O2 Flow Rate FiO2 05/29/18 11:20 36.5 71 18 117/79 (92) 92 Nasal Cannula 2.0 05/29/18 09:45 95 Nasal Cannula 05/29/18 07:45 Room Air 05/29/18 07:19 36.3 77 18 112/74 (87) 93 Room Air 05/29/18 04:15 36.4 73 18 105/72 (83) 94 Room Air Review Cardiovascular: regular rate, rhythm, no edema Lungs: chest non-tender, lungs clear Pre-Sedation Airway Assessment Smoking Status: Never Smoker Hx of Sleep Apnea: No Hx of difficult intubation: No Short Thick Neck: No Thyro-mental Distance: > 3 Finger Breadths Oral Cavity: WNL Mallampati Classification: Class II ASA Classification: Class II Procedure Planning Contraindications for Sedation: None Current Medications Reviewed: Yes Notes The planned sedation has been discussed with the patient. Informed Consent was obtained. I have identified the patient, determined the appropriateness of sedation and have assessed the patient immediately prior to the procedure. All medicine(s) and interventions are by my order.
[2018-05-29] MEDS ORDERED: MIDAZOLAM HCL 1 MG/ML 2ML VIAL ONE (14:21)
[2018-05-29] MEDS ORDERED: HEPARIN SOD (PORCINE) 1000 UNIT/ML 10 ML VIAL ONE (14:22)
[2018-05-29] MEDS ORDERED: FENTANYL CITRATE INJ 50 MCG/1 ML 2 ML VIAL ONE (14:22)
[2018-05-29] MEDS ORDERED: NiCARDipine HCL INJ 2.5 MG/ML 10 ML AMP ONE (14:22)
[2018-05-29] MEDS ORDERED: NITROGLYCERIN/D5W 100MCG/ML 20ML SYR ONE (14:22)
--- NOTE | 2018-05-29 14:37 | Post Sedation Assessment ---
Post Sedation Assessment General Date of Sedation May 29, 2018. Vital Signs: Vital Signs Past 12 Hours Date Time Temp Pulse Resp B/P (MAP) Pulse Ox O2 Delivery O2 Flow Rate FiO2 05/29/18 11:20 36.5 71 18 117/79 (92) 92 Nasal Cannula 2.0 05/29/18 09:45 95 Nasal Cannula 05/29/18 07:45 Room Air 05/29/18 07:19 36.3 77 18 112/74 (87) 93 Room Air 05/29/18 04:15 36.4 73 18 105/72 (83) 94 Room Air Post Procedure Recovery Score Activity: (2) Moves 4 extremities * Respiration: (2) Deep breath/cough Circulation: (2) +/-20% PreAnes Value Consciousness: (2) Fully Awake Oxygen Saturation: (2) > 92% On Room Air Post Anesthesia Score: 10 Discharge Sedation Level of Care: Fast Track Phase II Post Sedation Plan On clinical assessment, the patient appears to have tolerated the sedation without complications. Patient is recovering as anticipated. Patient will continue to be monitored by nursing and may be discharged when sedation discharge criteria are met per below protocol. Upon Completions of procedure and additional 15 minutes continue every 5 minute vital signs and the P.A.R. score; then discharge to a Phase I or Fast Track to Phase II per the following guidelines: * Discharge Patient to appropriate Phase II area if PAR is 8 or greater or return to pre- procedure baseline. The post - procedure orders will be as directed. * If PAR score is less than 8 or not return to pre-procedure baseline then patient will follow Phase I monitoring till PAR is reached for Phase II. The Phase I may be done in procedure room or may call to secure a Phase I area. * If naloxone or flumazenil are used for reversal, hold in Phase I for an additional 60 -120 minutes before discharge to Phase II. Please call the Sedation Physician to re-evaluate and complete post-note for discharge to Phase II area. Do NOT discharge from procedure sedation or Phase 1 until post- sedation evaluation note is complete by procedure /sedation MD Sedation Discharge Instructions to be given to the patient at discharge to home.
[2018-05-29] MEDS ORDERED: SODIUM CHLORIDE 0.9% 1000ML 1,000 ML IV SCH (14:40)
--- NOTE | 2018-05-29 14:40 | Cardiac Catheterization ---
Procedure Note Procedure Date May 29, 2018. Pre-Procedure Diagnosis Cardiomyopathy AUC Score 7 Post-Procedure Diagnosis Normal Coronary Arteries, Normal Intracardiac Pressures Procedure(s) Performed Coronary Angiography, Left Heart Cath Field Service Specialist ellie Department Chair(s) Estimated Blood Loss Medication(s) Fentanyl, Heparin, Nicardipine, Nitroglycerin, Versed, Lidocaine 1% Summary of Findings Indication: Severe LV dysfunction. Access: 6Fr right radial artery Catheters: [place] Findings: LM - Angiographically normal LAD - Angiographically normal Circumflex - Angiographically normal RCA - Angiographically normal LVEDP - 3 Arterial Closure: TR Band Summary: 1. Angiographically normal coronary arteries 2. Normal intracardiac filling pressure Recommendations: Continued ASCVD risk factor modification and guideline directed medical therapy for non-ischemic cardiomyopathy Hemodynamics Rest Ao: 89/67/74 Final Ao: 84/62/70 LV: 84/3 Recommendations Medical therapy and/or Counseling Specimens None Radiation Exposure (mGy) 904 Contrast (mls) 40 opti Fluids (cc crystalloids) 15 Drains none Anesthesia moderate Procedural Complication(s) None Disposition PCU ACC Data Cardiac Status Clinical evaluation leading to the procedure CAD Presntation: No Sxs, no angina Anginal Classification: No symptoms Heart Failure: Yes, NYHA Class: CCS IV Cardiogenic Shock w/in 24Hrs: No Cardiac Arrest w/in 24Hrs: No Imaging studies past 6 months: Yes Stress studies past 6 months: No Closure Device Percutaneous Entry Location: Radial Closure Device: Radial Band Recommendations: Medical therapy and/or Counseling Intraprocedure Events Significant Dissection: No Perforation: No
[2018-05-29] MEDS ORDERED: ACETAMINOPHEN 325 MG TAB PO PRN (14:45)
--- NOTE | 2018-05-29 16:24 | Cardiology Follow-Up ---
Subjective Date of Service: May 29, 2018. 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 He and his do note that he has had dyspnea on exertion when walking to his mailbox and on other occasions for probably close to a year, he has actually had appointments regarding it through the [facility] system but does not believe he has had an electrocardiogram or any other cardiac testing. His symptoms have worsened recently, possibly related to eating a lot of salty food over the weekend, but he also developed right flank pain which prompted a visit to the emergency room. In the emergency room he was found to be in congestive heart failure and echocardiography has shown severe left ventricular dysfunction. He was therefore admitted today. He also describes on further questioning orthopnea and a cough with laying down as well as peripheral edema. He has never had chest discomfort and does not have chest discomfort with exertion. He was recently diagnosed with "pneumonia ", however that was several days ago when he presented with worsening shortness of breath it does not sound as though chest x-ray or other cardiac evaluation was performed. He was started on an antibiotic. Here he appeared to be in congestive heart failure and echocardiography demonstrated severe left ventricular dysfunction. He has been diuresed and started on low-dose beta blockade and SAGE inhibition. Today he feels very well. He had his catheterization today and feels well afterwards. He feels much better than he did prior to admission, he is having no side effects on carvedilol and lisinopril. Social History Smoking Status: Never Smoker History of Alcohol Use: Yes ("depends") Review of Systems Respiratory: No cough, No sputum Cardiac: No chest pain Medications Cardiovascular: Item Value Date Time Lisinopril 2.5 mg 05/28/18 0900 (Zestril Tab) QAM/PO 05/29/18 08 Furosemide 40 mg/ 4 ml @ 4 mls/min 05/28/18 0900 Syringe BID17/IV 05/29/18 0824 Potassium Chloride 20 meq 05/28/18 0900 (Klor-Con Tab) BID/PO 05/29/18 0826 Simvastatin 40 mg 8/22/18 2100 (Zocor Tab) QPM/PO 05/28/182118 Carvedilol 3.125 mg 05/27/18 2100 (Coreg Tab) BID/PO 05/29/18 0826 Enoxaparin Sodium 40 mg 05/27/18 1100 (Lovenox Inj) Q24H/SC Objective Vital Signs Past 12 Hours Date Time Temp Pulse Resp B/P (MAP) Pulse Ox O2 Delivery O2 Flow Rate FiO2 05/29/18 15:25 87 18 102/60 (74) 95 Room Air 05/29/18 15:15 86 18 99/58 (72) 95 Room Air 05/29/18 15:00 88 18 103/54 (70) 95 Room Air 05/29/18 14:55 88 18 110/59 (76) 95 Room Air 05/29/18 14:50 87 18 106/61 (76) 95 Room Air 05/29/18 14:45 87 18 98/70 (79) 95 Room Air 05/29/18 14:40 83 18 109/72 (84) 95 Room Air 05/29/18 14:35 86 18 108/71 (83) 95 Room Air 05/29/18 11:20 36.5 71 18 117/79 (92) 92 Nasal Cannula 2.0 05/29/18 09:45 95 Nasal Cannula 05/29/18 07:45 Room Air 05/29/18 07:19 36.3 77 18 112/74 (87) 93 Room Air Last Recorded Weight-Kilograms: 122.600 Intake & Output 8-Hour Column 05/29/18 05/30/18 05/30/18 16:00 00:00 08:00 Output Total 800 ml Balance -800 ml 24-Hour Column 05/30/18 08:00 Output Total 800 ml Balance -800 ml Physical Exam Constitutional: General Apperance: heathly-appearing Level of Distress: NAD Lungs: Respiratory effort: no dyspnea, good air movement Auscultation: breath sounds normal, no wheezing Cardiovascular: Heart Auscultation: RRR, no murmurs, no rubs, no gallops Peripheral Pulses: Bruits: none appreciated Extremities: no edema Data Laboratory Results: Last 24 Hours Test 05/28/18 18:00 05/29/18 05:44 Sodium Level 137 mmol/L Potassium Level 3.8 mmol/L Chloride Level 103 mmol/L Carbon Dioxide Level 24 mmol/L Anion Gap 10.0 mmol/L Blood Urea Nitrogen 17 mg/dl Creatinine 0.96 mg/dl Est Creatinine Clear Calc Drug Dose 120.7 ml/min Estimated GFR () 103.4 Estimated GFR (Non- 89.3 BUN/Creatinine Ratio 18.0 Random Glucose 102 mg/dl Calcium Level 9.4 mg/dl Magnesium Level 2.4 mg/dl Telemetry reviewed: Sinus rhythm, no significant abnormality Assessment and Plan 1. Congestive heart failure: He presented with congestive heart failure which was symptomatically much worse over the last week or less, possibly related to eating a lot of salty food over the weekend. It sounds as though this was on top of long-standing difficulty with exertion, possibly going back about 1 year. This appears to be due to cardiomyopathy which I suspect has been present for some time. He has not had cardiovascular test so we cannot really tell. He feels much better after being diuresed, his cough has resolved and he is not short of breath. He has not been exerting himself therefore we do not know if he still has dyspnea on exertion. 2. Cardiomyopathy: This represents a nonischemic cardiomyopathy but we do need to exclude reversible causes. His Lyme screen and iron studies are negative, SPEP, SAGE are pending. His cardiomyopathy could just be due to the left bundle branch block. His cardiac catheterization was negative therefore it is not an ischemic cardiomyopathy. He is tolerating low-dose carvedilol and lisinopril, I am going to increase those prior to discharge however I do not want to increase them too much too rapidly. I would recommend discharging on carvedilol 6.25 mg twice daily and lisinopril 5 mg daily if he tolerates them overnight. We can continue to titrate as an outpatient. 3. Left bundle-branch block: As far as I know he has not had an electrocardiogram so we cannot determine how long he has had this pattern. It can lead to cardiomyopathy by itself, it could also be secondary to a cardiomyopathy. It does however suggest the possibility for improvement with biventricular pacing if no reversible causes found. I will arrange follow-up in the office in about 2 weeks. Thank you for allowing me to participate in his care.
[2018-05-29] MEDS: ARIPIprazole TAB 10 MG TAB PO SCH (20:40)
[2018-05-29] MEDS: SIMVASTATIN 40 MG TAB PO SCH (20:42)
[2018-05-29] MEDS: CARVEDILOL 6.25 MG TAB PO SCH (20:43)
[2018-05-30 03:49] VITALS: BP 110/73; PULSE 79; TEMP 36.9; O2SAT 94
--- NOTE | 2018-05-30 05:46 | Progress Note ---
Subjective Date of Service: May 29, 2018. Subjective Pt evaluation today including: conversation w/ patient, conversation w/ family (), physical exam, chart review, lab review, review of studies (heart cath) , review of inpatient medication list Pain: none PO Intake: normal Voiding: no voiding problems mild anxiety about the cath today otherwise no orthopnea, PND, CONTRERAS, cp, abd pain cough just about resolved tele normal overnight Problem List Medical Problems: (1) Hypoxia Status: Acute (2) Pulmonary edema Status: Acute Review of Systems Constitutional: No fever Respiratory: No sputum Cardiac: No chest pain Abdomen: No pain Objective Vital Signs Date Time Temp Pulse Resp B/P (MAP) Pulse Ox O2 Delivery O2 Flow Rate FiO2 05/29/18 20:43 36.5 82 18 97/65 (76) 92 Room Air 05/29/18 19:38 36.4 95 17 92/65 (74) 93 Room Air 05/29/18 18:31 94 18 106/62 (77) 95 Room Air 05/29/18 18:03 36.5 91 18 89/61 (70) 96 Room Air 05/29/18 17:32 94 18 101/68 (79) 94 Room Air 05/29/18 16:48 89 16 109/73 (85) 94 Room Air 05/29/18 16:18 89 19 103/68 (80) 95 Room Air 05/29/18 16:04 36.4 84 19 107/64 (78) 94 Room Air 05/29/18 16:00 Room Air 05/29/18 15:50 36.4 84 19 96/64 (75) 96 Room Air 05/29/18 15:32 36.4 80 18 97/68 (78) 92 Room Air 05/29/18 15:25 87 18 102/60 (74) 95 Room Air 05/29/18 15:15 86 18 99/58 (72) 95 Room Air 05/29/18 15:00 88 18 103/54 (70) 95 Room Air 05/29/18 14:55 88 18 110/59 (76) 95 Room Air 05/29/18 14:50 87 18 106/61 (76) 95 Room Air 05/29/18 14:45 87 18 98/70 (79) 95 Room Air 05/29/18 14:40 83 18 109/72 (84) 95 Room Air 05/29/18 14:35 86 18 108/71 (83) 95 Room Air 05/29/18 11:20 36.5 71 18 117/79 (92) 92 Nasal Cannula 2.0 05/29/18 09:45 95 Nasal Cannula 05/29/18 07:45 Room Air 05/29/18 07:19 36.3 77 18 112/74 (87) 93 Room Air 05/29/18 04:15 36.4 73 18 105/72 (83) 94 Room Air 05/29/18 00:00 Room Air 05/29/18 00:00 36.7 84 18 112/75 (87) 92 Room Air Physical Exam General Appearance: no apparent distress, + obese ENT: pharynx normal Neck: no JVD Respiratory/Chest: lungs clear, normal breath sounds, no respiratory distress, no accessory muscle use Cardiovascular: regular rate, rhythm, no gallop, no murmur Abdomen: normal bowel sounds, non tender, soft, no organomegaly Extremities: no pedal edema Neurologic/Psychiatric: alert, oriented x 3, + pertinent finding (anxious ) Laboratory Results Last 24 Hours Test 05/29/18 05:44 Sodium Level 137 mmol/L Potassium Level 3.8 mmol/L Chloride Level 103 mmol/L Carbon Dioxide Level 24 mmol/L Anion Gap 10.0 mmol/L Blood Urea Nitrogen 17 mg/dl Creatinine 0.96 mg/dl Est Creatinine Clear Calc Drug Dose 120.7 ml/min Estimated GFR () 103.4 Estimated GFR (Non- 89.3 BUN/Creatinine Ratio 18.0 Random Glucose 102 mg/dl Calcium Level 9.4 mg/dl Magnesium Level 2.4 mg/dl Assessment and Plan 52yo male with 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 1. acute hypoxic respiratory failure - 2nd to acute systolic CHF. Cont IV diuresis. CXR this am without any pneumonia; d/c antibiotics. 2. acute systolic CHF - appreciate cardiology consultation and recommendations. His EF is significantly depressed at 20%. Etiology is uncertain. Lyme's testing, ferritin (for hemochromatosis), etc all normal. Could be LBBB-related. Heart cath today normal excluding ischemic cardiomyopathy. Cont BB and SAGE. Can likely stop; IV lasix after tonight's dose. Repeat labs in am. Lasix 40mg BID at d/c? 40mg daily? Will need f/u with Dr. Townsend for consideration of BiV pacer/ICD. 3. LBBB - I do not have an old EKG to compare. He has had no ischemic symptoms. Troponin was negative. Left heart cath wnl. 4. depression with ?bipolar disorder - continue outpatient medications. 5. chronic wound, RLE schrader - appreciate wound care nurse consult and recommendations. 6. DVT proph - lovenox 40mg daily. 7. hyperlipidemia - continue statin agent; CPK and TSH both wnl. 8. FEN - AHA diet, saline lock, BMP am. Appreciate fisheries diver consult to help with nutritional counseling as his diet is very high in salt. 9. visual loss/legal blindness - chronic. Continue eye drops. 10. GERD - PPI. 11. obesity with BMI 35. home tomorrow? Continued [facility] stay due to: multiple IV medications needed Discharge planning: home
[2018-05-30 07:43] VITALS: BP 100/63; PULSE 70; TEMP 36.5; O2SAT 96
[2018-05-30 08:01] LABS: HEMATOCRIT 45.3 % (42-52); HEMOGLOBIN 15.1 g/dL (14.0-18.0); MEAN CELL VOLUME 91.7 fL (80-100); MEAN CORPUSCULAR HEMOGLOBIN 30.6 pg (25-34); MEAN CORPUSCULAR HGB CONC 33.3 g/dl (32-36); MEAN PLATELET VOLUME 10.5 fL (7.4-10.4); PLATELET COUNT 199 K/uL (130-400); RED CELL DISTRIBUTION WIDTH CV 13.6 % (11.5-14.5); WHITE BLOOD COUNT 6.21 K/uL (4.8-10.8)
[2018-05-30] MEDS: MAGNESIUM OXIDE 400 MG TAB PO SCH (08:28)
[2018-05-30] MEDS: FLUTICASONE PROPIONATE NA SPR 16 GM BTL NAE SCH (08:28)
[2018-05-30] MEDS: CARVEDILOL 6.25 MG TAB PO SCH (08:29)
[2018-05-30] MEDS: PANTOprazole SOD 40 MG TAB PO SCH (08:29)
[2018-05-30] MEDS: CEROVITE ADV FORMULA TAB PO SCH (08:29)
[2018-05-30] MEDS: POTASSIUM CHLORIDE 20 MEQ TABCR PO SCH (08:30)
[2018-05-30] MEDS: GUAIFENESIN 600 MG TABCR PO SCH (08:30)
[2018-05-30] MEDS: CHOLECALCIFEROL 1000 INTER.UNIT TAB PO SCH (08:30)
[2018-05-30] MEDS: CETIRIZINE HCL 10 MG TAB PO SCH (08:30)
[2018-05-30 08:37] LABS: CALCIUM 9.1 mg/dl (8.5-10.1); CREATININE 0.98 mg/dl (0.60-1.40)
[2018-05-30] MEDS ORDERED: LISINOPRIL 5 MG TAB PO SCH (09:00)
[2018-05-30] MEDS: GABAPENTIN 300 MG CAP PO SCH (09:50)
--- NOTE | 2018-05-30 11:41 | Cardiology Follow-Up ---
Subjective General Date of Service: May 30, 2018. Pt evaluation today including: conversation w/ patient, chart review, lab review, review of studies, conversation w/ planning consultant History of Present Illness The patient is a 52 year old male Allergies Coded Allergies: No Known Allergies (Verified , `, 05/27/18) Social History Smoking Status: Never Smoker Hx Tobacco Use In Past Year?: No Hx Alcohol Use - Type And Amou: Yes ("depends") Hx Substance Use - Type And Am: No Problem List Medical Problems: (1) Hypoxia Status: Acute (2) Pulmonary edema Status: Acute Review of Systems Respiratory: No cough, No shortness of breath, No dyspnea at rest Cardiac: No chest pain, No edema, No palpitations Physical Exam Vital Signs Last Vital Signs Documentation Date Time Temp Pulse Resp B/P (MAP) Pulse Ox O2 Delivery O2 Flow Rate FiO2 05/30/18 08:00 Room Air 05/30/18 07:43 36.5 70 19 100/63 (75) 96 05/29/18 11:20 2.0 Physical Exam Constitutional: General Apperance: heathly-appearing Level of Distress: NAD Psychiatric: Mental Status: active & alert Eyes: EOM: EOMI Lungs: Respiratory effort: no dyspnea, good air movement Auscultation: breath sounds normal, no wheezing Cardiovascular: Heart Auscultation: RRR, no murmurs, no rubs, no gallops Peripheral Pulses: Bruits: none appreciated Abdomen: Bowel Sounds: normal Inspection & Palpation: soft, no tenderness, guarding & rebound, no masses Extremities: no edema Assessment and Plan Assessment and Plan 1. Acute systolic heart failure 2. Left bundle branch block 3. No evidence of significant epicardial coronary disease by cardiac catheterization this admission 4. Short episode of a 5 beat run of nonsustained VT He is currently on carvedilol and lisinopril. I would send him home on a small dose of oral diuretics. I would start with 40 mg of furosemide. He will need a BMP in a week. And will need to follow-up with [facility] cardiology in the next 10-14 days. As an outpatient depending on his blood pressure his lisinopril can be switched to Entresto. We discussed in detail the need for daily weights and a low-salt diet. We discussed if his weight is up by more than 2 pounds in the 24-48 hour to let his physicians know. We also discussed avoiding canned foods and processed foods along with mayonnaise and salad dressings. We also discussed that eating out can be very difficult and watching his salt intake. We discussed he should consume no more than 2000 mg of sodium a day as well as 2 L of liquids. We will need reassessment of his LV function in 90 days depending on his ejection fraction remains less than 35% he will qualify for biventricular defibrillator.. Laboratory Results Last 24 Hours Test 05/30/18 07:07 White Blood Count 6.21 K/uL Red Blood Count 4.94 M/uL Hemoglobin 15.1 g/dL Hematocrit 45.3 % Mean Corpuscular Volume 91.7 fL Mean Corpuscular Hemoglobin 30.6 pg Mean Corpuscular Hemoglobin Concent 33.3 g/dl RDW Standard Deviation 46.0 fL RDW Coefficient of Variation 13.6 % Platelet Count 199 K/uL Mean Platelet Volume 10.5 fL Sodium Level 138 mmol/L Potassium Level 4.0 mmol/L Chloride Level 105 mmol/L Carbon Dioxide Level 24 mmol/L Anion Gap 9.0 mmol/L Blood Urea Nitrogen 20 mg/dl Creatinine 0.98 mg/dl Est Creatinine Clear Calc Drug Dose 119.4 ml/min Estimated GFR () 100.9 Estimated GFR (Non- 87.1 BUN/Creatinine Ratio 20.7 Random Glucose 94 mg/dl Calcium Level 9.1 mg/dl
[2018-05-30] MEDS: ENOXAPARIN 40 MG/0.4 ML SYR SC SCH (11:56)
[2018-05-30 12:00] VITALS: BP 124/81; PULSE 78; TEMP 36.4; O2SAT 100
[2018-05-30] MEDS ORDERED: FUROSEMIDE 40 MG TAB PO ONE (14:00)
[2018-05-30] MEDS ORDERED: ACET-24 PO (14:06)
[2018-05-30] MEDS ORDERED: LSX40 PO (14:06)
[2018-05-30] MEDS ORDERED: LISI-730 PO (14:06)
[2018-05-30] MEDS ORDERED: CRG625 PO (14:06)
[2018-05-30] MEDS ORDERED: MCRK20 PO (14:06)
--- NOTE | 2018-05-30 14:11 | Discharge Instructions ---
Discharge Instructions Date of Service May 30, 2018. Admission Reason for Admission: Acute Chf, Hypoxia Discharge Discharge Diagnosis / Problem: Acute systolic congestive heart failure Discharge Goals Goal(s): Improve disease control, Learn about illness, Diagnostic testing, Therapeutic intervention Activity Recommendations Activity Limitations: as noted below Exercise/Sports Limitations: rest today (And then you may begin walking tomorrow, but no further exertion than that until advised to do so by your fixed wing aircraft crew chief) Shower/Bathe: no limitations Driving or Machine Use: no limitations . Instructions / Follow-Up Instructions / Follow-Up You were admitted due to worsening shortness of breath and low oxygen levels and found to have new onset congestive heart failure. It is unknown what caused this, but you were started on medications to help improve the function of your heart and remove excess fluid from your body. You had a cardiac catheterization that showed no significant blockages in your coronary arteries. It is recommended that you not take Mobic/meloxicam for pain as this can increase your risk of stroke and heart attack. It is safe to take Tylenol/ acetaminophen for pain. It is very important that you follow the instructions as below, and follow-up with the fixed wing aircraft crew chief as scheduled for you. Please also follow-up with your primary care physician within 1-2 weeks. Call your Primary Care doctor if any of the following symptoms or problems start or get worse: * Shortness of breath or difficulty breathing * Wake up at night short of breath * Chest pain * Cough * Swelling of your hands, feet, or legs * More fatigued or tired with your normal activity * Palpitations - sudden fast heart beats WEIGHT * Weigh yourself every morning after using the bathroom. * Use the same scale. * Wear the same amount of clothing. * Write your weight down on a chart. * Call your Primary Care doctor or your fixed wing aircraft crew chief if you gain more than 2-3 pounds in 1-2 days. MEDICATIONS * Use this discharge instruction sheet for medication instructions. * Take your medications at the time your doctor ordered. * Do not skip a dose of your medicines. * If you miss a dose of medicine, take it as soon as possible, but DO NOT DOUBLE A DOSE. * Read your medicine information when you get home. * Know all of the side effects of your medicine. If in doubt, ask your pharmacist * Call your Primary Care doctor's office if you have any side effects. * Be sure all of your doctors know what medicine and herbs you take (including cold, flu, and herbal medicine). Take the following with you to your follow-up doctor appointments: * Weight Chart * Medication List * List of questions Do not drink excessive alcohol, beer or wine. Current Hospital Diet Patient's current hospital diet: AHA Diet (Heart Healthy) Discharge Diet Recommended Diet: Low Sodium Diet (2gm Na) Fluid Restriction: 1800 ml (7 cups) Procedures Procedures Performed: Echocardiogram Cardiac catheterization Chest x-ray CT angiogram of the chest Pending Studies Studies pending at discharge: yes List of pending studies: Urine protein electrophoresis Laboratory Results Last 24 Hours Test 05/30/18 07:07 White Blood Count 6.21 K/uL Red Blood Count 4.94 M/uL Hemoglobin 15.1 g/dL Hematocrit 45.3 % Mean Corpuscular Volume 91.7 fL Mean Corpuscular Hemoglobin 30.6 pg Mean Corpuscular Hemoglobin Concent 33.3 g/dl RDW Standard Deviation 46.0 fL RDW Coefficient of Variation 13.6 % Platelet Count 199 K/uL Mean Platelet Volume 10.5 fL Sodium Level 138 mmol/L Potassium Level 4.0 mmol/L Chloride Level 105 mmol/L Carbon Dioxide Level 24 mmol/L Anion Gap 9.0 mmol/L Blood Urea Nitrogen 20 mg/dl Creatinine 0.98 mg/dl Est Creatinine Clear Calc Drug Dose 119.4 ml/min Estimated GFR () 100.9 Estimated GFR (Non- 87.1 BUN/Creatinine Ratio 20.7 Random Glucose 94 mg/dl Calcium Level 9.1 mg/dl Medical Emergencies . Who to Call and When: Call 911 or go to the Emergency Room if: * If at any time you feel your situation is an emergency * You have tightness or pain in your chest that does not go away with rest or Nitroglycerin * You are very short of breath even with rest . Non-Emergent Contact Non-Emergency issues call your: Primary Care Provider, Stone Cutter Call Non-Emergent contact if: you have any medication questions You gain more than 2 pounds from 1 day to the next, or if you have any other acute concerns. If you develop chest pain, heart palpitations, lightheadedness, or passing out, please go emergently to the hospital. . . "Provider Documentation" section prepared by Ananya Lopes. .
[2018-05-30 14:13] VITALS: BP 124/81; PULSE 78; TEMP 36.4; O2SAT 100
--- NOTE | 2018-05-30 14:23 | Discharge Summary ---
Discharge Summary Date of Service May 30, 2018. 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 Hyperlipidemia Depression (question of bipolar disorder) Obesity, BMI 36.4 LBBB Chronic wound, RLE GERD Procedures: CT angiogram chest Chest x-ray Echocardiogram Cardiac catheterization Consultations: Cardiology Medication Reconciliation New Medications: Acetaminophen (Sb Non-Aspirin Extra Stre) 500 Mg Tab 1000 MG PO Q8 PRN for Pain for 30 Days Carvedilol (Carvedilol) 6.25 Mg Tab 6.25 MG PO BID for 30 Days, #60 TAB Furosemide (Furosemide) 40 Mg Tab 40 MG PO QAM for 30 Days, #30 TAB Lisinopril (Lisinopril) 5 Mg Tab 5 MG PO QAM for 30 Days, #30 TAB Potassium Chloride (Klor-Con M20) 20 Meq Tabcr 20 MEQ PO QAM for 30 Days, #30 TAB Continued Medications: Aripiprazole (Abilify) 10 Mg Tab 10 MG PO QPM, TAB Cetirizine Hcl (Zyrtec) 10 Mg Tab 10 MG PO DAILY, TAB Cholecalciferol (Vitamin D3) 1,000 Unit Tab 2 TAB PO DAILY, 3 Refills Fluticasone Propionate (Nasal) (Flonase Allergy Relief) 50 Mcg/Act Spr 1 SPRAY ANTHONY BID Gabapentin (Neurontin) 300 Mg Cap 300 MG PO BID, CAP Hydrocortisone (Hydrocortisone) 60 Gm Cr 1 APPLN TD BID Melatonin-Pyridoxine (Melatonin) 1 Tab Tab 3 MG PO HS Multiple Vitamins W/ Minerals (Ocuvite Eye + Multi) 1 Tab Tab 2 TABS PO BID AREDS TABS Multiple Vitamins W/ Minerals (Preservision Areds) 1 Cap Cap 2 CAP PO DAILY Jfzdotgf-Fpbsyzxhnw-Uhlxzdgdq (Bacitracin/Neomycin/Polym) 1 Oin Oin 1 APPLN TD DAILY Omeprazole (Prilosec) 20 Mg Cap 20 MG PO BID, CAP Simvastatin (Zocor) 40 Mg Tab 40 MG PO QPM, TAB Testosterone (Androgel Pump) 1.62 % Gel 40.5 MG TOP DAILY, #75 GM 5 Refills APPLY 2 PUMPS TO SKIN ,KEEP CLOTHING COVERING AFTERWARD Discontinued Medications: Meloxicam (Mobic) 15 Mg Tab 15 MG PO DAILY, TAB Sildenafil Citrate (Viagra) 100 Mg Tab 100 MG PO UD PRN for SEXUAL ACTIVITY, TAB Referrals At Discharge Follow up Referrals: Manager [facility] Referral - Within 1-2 Weeks with Estuardo Townsend M.D. Discharge Exam Patient feeling very well on the day of discharge. He denies any chest pain or shortness of breath. He was ambulating around the halls all night as he was unable to sleep, as well as this morning without any dyspnea. He has diuresed almost 4 L of fluid. He feels his abdominal distention and lower extremity swelling are also improved. His questions were all answered and his is at the bedside. I discussed the case with cardiology today. Telemetry with one 5 beat run of ventricular tachycardia during hospital stay, otherwise normal sinus rhythm with rates in the 80s. Review of Systems: Constitutional: No problem reported Eyes: No problem reported ENT: No problem reported Respiratory: No problem reported Cardiovascular: No palpitations, No problem reported Abdomen: No problem reported Musculoskeletal: No problem reported Genitourinary - Male: No problem reported Neurologic: No problem reported Psychiatric: No problem reported Endocrine: No problem reported Hematologic / Lymphatic: No problem reported Integumentary: No problem reported Physical Exam: General Appearance: WD/WN, no apparent distress Eyes: normal inspection, sclerae normal ENT: hearing grossly normal Neck: no JVD, trachea midline Respiratory/Chest: lungs clear, normal breath sounds, no respiratory distress, no accessory muscle use Cardiovascular: regular rate, rhythm, no edema, no gallop, no murmur, normal peripheral pulses Abdomen / GI: normal bowel sounds, non tender, soft, no organomegaly, no pulsatile mass Extremities: normal inspection, no calf tenderness, normal capillary refill , no pedal edema, normal range of motion Neurologic/Psychiatric: alert, normal mood/affect, oriented x 3 Skin: normal color, warm/dry, no rash Hospital Course This patient is a 52yo male with h/o legal blindness due to Stargardt's disease , hyperlipidemia, depression (question of bipolar disorder), and obesity presenting with acute hypoxic respiratory failure and found to have a new onset systolic CHF. 1. Acute hypoxic respiratory failure - 2nd to acute systolic CHF. Received IV diuresis and was weaned off oxygen was satting 100% on room air at the time of discharge. CXR here without any pneumonia; all antibiotics were discontinued the restarted as an outpatient 2. Acute systolic CHF - appreciate cardiology consultation and recommendations. His EF is significantly depressed at 20-25 %. Etiology is uncertain. Lyme disease testing, ferritin (for hemochromatosis), TSH, etc all normal. Could be LBBB-related. Heart cath here was normal, thereby excluding ischemic cardiomyopathy. LBBB also was found and may be contributed to his cardiomyopathy, or could be a result of the cardiomyopathy. -Was started on carvedilol and lisinopril and the should be continued upon discharge-consideration should be made switching him to Entresto at some point in the future -he was diuresed initially with IV Lasix and will be switched to Lasix 40 mg p.o. once daily upon discharge along with a potassium supplement -He should have a repeat BMP in 1 week -needs outpatient cardiology follow-up which has been scheduled for him in 2 weeks -Will need f/u with Dr. Townsend for consideration of BiV pacer/ICD if EF is not improved in 90 days. -He was instructed on a low-sodium diet, fluid restriction, daily weights -He was also instructed to walk only for exercise but nothing more exertional than that until advised to do so by his manager implementation 3. LBBB - I do not have an old EKG to compare. He has had no ischemic symptoms. Troponin was negative. Left heart cath wnl. Follow-up with cardiology 4. depression with ?bipolar disorder - continue outpatient medications. 5. chronic wound, RLE schrader - appreciate wound care nurse consult and recommendations. No signs of infection 6. Hyperlipidemia - continue statin agent; CPK and TSH both wnl. 7. Visual loss/legal blindness - chronic. Continue eye drops. 8. GERD - PPI. 9. Obesity with BMI 36.4 -Counseled on weight loss and healthy diet Stable for discharge to home Total Time Spent: Greater than 30 minutes This includes examination of the patient, discharge planning, medication reconciliation, and communication with other providers. Discharge Instructions Please refer to the electronic Patient Visit Report (Discharge Instructions) for additional information. Follow-Up With manager implementation and PCP within 1-2 weeks Needs BMP checked in 1 week Additional Copies To Estuardo Townsend M.D. ; [facility]
[2018-05-31] MEDS ORDERED: FUROSEMIDE 40 MG TAB PO SCH (09:00)
== END 2018-05-30 14:52 | disposition home or self-care (01) | DRG 286 ==
LOC: C.EDB 03:30 → C.MED 08:49 → ENRESERV 09:02 → EDBEDREQ 05-29 14:59 → ENRESERV 05-29 15:21 → C.2T 05-29 16:17
PROVIDERS: ADMIT Internal Medicine; ATTEND Family Medicine
PROC: 4A023N7 Measurement of Cardiac Sampling and Pressure, Left Heart, Percutaneous Approach (ICD-10-PCS; principal; 2018-05-29 14:34)
PROC: B211YZZ Fluoroscopy of Multiple Coronary Arteries using Other Contrast (ICD-10-PCS; principal; 2018-05-29 14:34)
DX: I50.21 Acute systolic (congestive) heart failure (principal); J96.01 Acute respiratory failure with hypoxia; I42.9 Cardiomyopathy, unspecified; I47.2 Ventricular tachycardia; I44.7 Left bundle-branch block, unspecified; R10.31 Right lower quadrant pain; H35.50 Unspecified hereditary retinal dystrophy; H54.8 Legal blindness, as defined in USA; S81.801D Unspecified open wound, right lower leg, subsequent encounter; E78.5 Hyperlipidemia, unspecified; F31.9 Bipolar disorder, unspecified; K21.9 Gastro-esophageal reflux disease without esophagitis; M17.0 Bilateral primary osteoarthritis of knee; E66.9 Obesity, unspecified; Z51.81 Encounter for therapeutic drug level monitoring; Z79.899 Other long term (current) drug therapy; Z87.01 Personal history of pneumonia (recurrent); Z68.36 Body mass index [BMI] 36.0-36.9, adult; Z82.49 Family history of ischemic heart disease and other diseases of the circulatory system; Z83.3 Family history of diabetes mellitus; Z80.1 Family history of malignant neoplasm of trachea, bronchus and lung; Z82.5 Family history of asthma and other chronic lower respiratory diseases; X58.XXXD Exposure to other specified factors, subsequent encounter

== ENCOUNTER 2022-04-02 06:28 | Observation (INO) ==
--- NOTE | 2022-02-26 09:07 | PAT Medication Instructions ---
Medication Instructions Date of Service February 26, 2022 Home Medications Medication Instructions Recorded sacubitril 97 mg-valsartan 103 mg 1 tab PO BID #180 tab 08/08/20 tablet (Entresto) aripiprazole 10 mg tablet (Abilify) 10 mg PO QPM cetirizine 10 mg capsule (Zyrtec) 10 mg PO QAM omeprazole 20 mg capsule,delayed release 20 mg PO BID cholecalciferol (vitamin D3) 25 mcg (1,000 unit) capsule 2,000 units PO QAM fluticasone propionate 50 mcg/actuation nasal spray,suspension 1 sprays INTNAS BID PRN melatonin 3 mg tablet 3 mg PO HS PRN multivitamin 4 tab PO QAM simvastatin 40 mg tablet 40 mg PO QPM sacubitril 97 mg-valsartan 103 mg tablet (Entresto) 1 tab PO BID atorvastatin 10 mg tablet 10 mg PO QAM bumetanide 2 mg tablet 2 mg PO QAM buspirone 10 mg tablet 10 mg PO TID carvedilol 25 mg tablet 25 mg PO BID hydroxyzine HCl 25 mg tablet 25 mg PO TID loratadine 10 mg tablet 10 mg PO QAM meloxicam 15 mg tablet 15 mg PO QAM potassium chloride 20 mEq tablet,extended release 20 meq PO QAM pregabalin 100 mg capsule 100 mg PO BID spironolactone 25 mg tablet 25 mg PO QAM testosterone 20.25 mg/1.25 gram (1.62 %) transdermal gel pump 1 pump TOPICAL QAM trazodone 50 mg tablet 50 mg PO HS ASK your surgeon for instructions meloxicam 15 mg tablet 15 mg PO QAM DO NOT take the morning of surgery cetirizine 10 mg capsule (Zyrtec) 10 mg PO QAM cholecalciferol (vitamin D3) 25 mcg (1,000 unit) capsule 2,000 units PO QAM multivitamin 4 tab PO QAM sacubitril 97 mg-valsartan 103 mg tablet (Entresto) 1 tab PO BID (continue as normal unless told otherwise by prescriber) bumetanide 2 mg tablet 2 mg PO QAM hydroxyzine HCl 25 mg tablet 25 mg PO TID loratadine 10 mg tablet 10 mg PO QAM potassium chloride 20 mEq tablet,extended release 20 meq PO QAM spironolactone 25 mg tablet 25 mg PO QAM testosterone 20.25 mg/1.25 gram (1.62 %) transdermal gel pump 1 pump TOPICAL QAM Take morning of surgery With a small sip of water, OTHERWISE NOTHING TO EAT OR DRINK AFTER MIDNIGHT: omeprazole 20 mg capsule,delayed release 20 mg PO BID fluticasone propionate 50 mcg/actuation nasal spray,suspension 1 sprays INTNAS BID PRN (if needed) atorvastatin 10 mg tablet 10 mg PO QAM buspirone 10 mg tablet 10 mg PO TID carvedilol 25 mg tablet 25 mg PO BID pregabalin 100 mg capsule 100 mg PO BID Take evening before surgery aripiprazole 10 mg tablet (Abilify) 10 mg PO QPM omeprazole 20 mg capsule,delayed release 20 mg PO BID fluticasone propionate 50 mcg/actuation nasal spray,suspension 1 sprays INTNAS BID PRN (if needed) melatonin 3 mg tablet 3 mg PO HS PRN (if needed) simvastatin 40 mg tablet 40 mg PO QPM sacubitril 97 mg-valsartan 103 mg tablet (Entresto) 1 tab PO BID buspirone 10 mg tablet 10 mg PO TID carvedilol 25 mg tablet 25 mg PO BID hydroxyzine HCl 25 mg tablet 25 mg PO TID pregabalin 100 mg capsule 100 mg PO BID trazodone 50 mg tablet 50 mg PO HS Other Notes If you have any questions please call us at [phone] or [phone] or [phone] or [phone]
--- NOTE | 2022-02-28 11:35 | Anesthesiology Consultation ---
Date of Service February 28, 2022 Assessment & Plan (1) Encounter for pre-operative examination: - Patient acceptable risk for surgery pending cardiology preop evaluation ([facility]; 03/06). - COVID screening: Per assessment on 02/28: No known COVID-19 positive contacts or current COVID-19 related symptoms. Travel screen negative. Patient vaccinated. Surgeon arranging preop COVID testing. Awaiting results. Chart Review Chart Review: Patient seen in Pre Admission Testing Teaching & Discussion Pre-Anesthesia Teaching/Discussion Notes: Instructed NPO after midnight before surgery,except medications with 15 cc of water. Medication instructions provided according to the PAT guidelines. History Surgery Operation Date: 04/02/22 12:30 Proposed Procedures p Left Total Knee Arthroplasty - Cheko Bernardo MD Height/Weight Height: 5 ft 10 in Weight: 129.5 kg Allergies Allergy/AdvReac Type Severity Reaction Status Date / Time No Known Drug Allergies Allergy Verified 02/25/22 13:42 seasonal allergies AdvReac Uncoded 02/25/22 13:43 Medications Home Medications Medication Instructions Recorded Confirmed Last Taken aripiprazole 10 mg tablet (Abilify) 10 mg PO QPM #0 tab 10/20/12 02/25/2209/23 20:00 cetirizine 10 mg capsule (Zyrtec) 10 mg PO QAM #0 tab 10/20/12 02/25/22 09/23/18 08:00 omeprazole 20 mg capsule,delayed 20 mg PO BID #0 cap 10/20/12 02/25/22 09/23/18 20:00 release cholecalciferol (vitamin D3) 25 2,000 units PO QAM 10/07/19 02/25/22 Unknown mcg (1,000 unit) capsule fluticasone propionate 50 1 sprays INTNAS BID PRN ml 10/07/19 02/25/22 Unknown mcg/actuation nasal spray,suspension melatonin 3 mg tablet 3 mg PO HS PRN 10/07/19 02/25/22 Unknown multivitamin 4 tab PO QAM tab 10/07/19 02/25/22 Unknown simvastatin 40 mg tablet 40 mg PO QPM 10/07/19 02/25/22 Unknown sacubitril 97 mg-valsartan 103 mg 1 tab PO BID #180 tab 08/08/20 02/25/22 Unknown tablet (Entresto) atorvastatin 10 mg tablet 10 mg PO QAM 02/25/22 02/25/22 Unknown bumetanide 2 mg tablet 2 mg PO QAM 02/25/22 02/25/22 Unknown buspirone 10 mg tablet 10 mg PO TID 02/25/22 02/25/22 Unknown carvedilol 25 mg tablet 25 mg PO BID 02/25/22 02/25/22 Unknown hydroxyzine HCl 25 mg tablet 25 mg PO TID 02/25/22 02/25/22 Unknown loratadine 10 mg tablet 10 mg PO QAM 02/25/22 02/25/22 Unknown meloxicam 15 mg tablet 15 mg PO QAM 02/25/22 02/25/22 Unknown potassium chloride 20 mEq 20 meq PO QAM 02/25/22 02/25/22 Unknown tablet,extended release pregabalin 100 mg capsule 100 mg PO BID 02/25/22 02/25/22 Unknown spironolactone 25 mg tablet 25 mg PO QAM 02/25/22 02/25/22 Unknown testosterone 20.25 mg/1.25 gram 1 pump TOPICAL QA 02/25/22 02/25/22 Unknown (1.62 %) transdermal gel pump trazodone 50 mg tablet 50 mg PO HS 02/25/22 02/25/22 Unknown Past Medical History Medical History Biventricular ICD (implantable cardioverter-defibrillator) in place [employer], follows [facility]-last check 09/11/2021 Follows with [facility] (preop appt 03/06) Blindness of both eyes Cardiomyopathy CHF (congestive heart failure) idiopathic, EF 35% Depression LBBB (left bundle branch block) Hx Morbid obesity Neuropathy Sleep apnea CPAP (compliant) Exercise / Class Metabolic Activity II 4-5 Yardwork/Stairs/Walk up hill Past Surgical History Surgical History H/O bone graft History of cardiac cath 05/29/18: angiographically normal coronary arteries Hx of arthroscopic knee surgery Hx of cholecystectomy Hx of tonsillectomy Past Anesthesia History No Hx of Anesthesia Complications and No Family Hx of Anesthesia Complications History of PONV No Hx of PONV and No Hx of Motion Sickness Social History Smoking Status: Never smoker Do You Dip or Chew Tobacco: No Hx Alcohol Use: Yes (RARELY) Alcohol type: beer alcohol intake frequency: holidays/special occasions only Hx Substance Use: No substance use type: does not use Review of Systems Patient denies chest pain, shortness of breath, dyspnea on exertion, fever, chills, cough, wheezing, palpitations. Physical Exam Vital Signs VITALS BP 101/62 P 74 TEMP 98.2 SP02 95%RA RESP 16 PHYSICAL Full cervical extension range of motion. Full TMJ range of motion. TMD 3 finger breaths Mallampati Score 2 Dentition: intact Lungs: clear throughout to auscultation Cardiac: regular rate and rhythm, no murmurs noted Spine: normal Carotid arteries: negative bruit Extremities: no edema Thick neck Lab Results Anesthesia Preop Results Results Anesthesia Widget: WBC 3.30 K/uL (4.8-10.8) L 02/28/22 Hgb 14.0 g/dL (14.0-18.0) 02/28/22 Hct 43.2 % (42-52) 02/28/22 Plt 202 K/uL (130-400) 02/28/22 Na 137 mmol/L (136-145) 02/28/22 K 3.7 mmol/L (3.5-5.1) 02/28/22 Cl 105 mmol/L (98-107) 02/28/22 CO2 26 mmol/L (21-32) 02/28/22 BUN 18 mg/dl (6-23) 02/28/22 Creat 0.91 mg/dl (0.6-1.4) 02/28/22 Glucose Level 139 mg/dl (70-99(Fasting)) H 02/28/22 PT 10.6 Seconds (9.0-12.0) 02/28/22 PTT 25.6 Seconds (21.0-31.0) 02/28/22 INR 1.0 (0.9-1.1) 02/28/22 Blood Type AB Positive 02/28/22 Antibody Screen NEGATIVE 02/28/22 Testing Laboratory Results Low WBC > report to be forwarded to PCP for continuity of care* Electrocardiogram Date: 02/28/22 Atrial sensed ventricular paced rhythm at 70 bpm. Chest X-Ray Date: 02/28/22 FINDINGS: A left subclavian biventricular pacer/AICD is in place. Lung volumes are normal. Lungs are clear. There is no pneumothorax or pleural effusion. Cardiac size is at the upper limits of normal. Mediastinal contours are normal. There is no evidence for pulmonary edema. IMPRESSION: No acute cardiopulmonary findings. Echocardiogram Date: 12/22/19 EF 35%. Mild RVD. Pacemaker seen in right ventricle. Mild LVD/RVE/LAD/FERN. Mild MR. Mild TR. Cardiac Catheterization Date: 05/29/18 Normal coronary arteries, normal intracardiac pressures. Other Testing Pacer/ICD check (09/11/21) Pinch [employer]. 2 VTNS episodes. 2 SVT episodes. AT/AF burden less than 0.1%. 100% biventricular pacing. Mode DDDR. AP 12.46. MINIATURE SET DESIGNER 99.59. Normal Battery parameters.
--- NOTE | 2022-03-30 09:24 | History and Physical Report ---
DATE OF ADMISSION: 04/02/2022. CHIEF COMPLAINT: Left knee pain and discomfort. HISTORY OF PRESENT ILLNESS: The patient is a 56-year-old gentleman with multiple medical comorbiditi es who presents for surgical treatment of his left knee. He has got a long history of left knee pain and discomfort. This gradually gotten worse over time. We did put an injections into his knee, whi ch have become less successful over time. He did have his left knee scope done on 3 separate occasio ns. We had actually scheduled him for knee surgery in the past, but had to cancel and had a defibril lator placed. He is now doing much better. He follows with Dr. Townsend. He has tried to wear a br shawanda without much relief. He would like to have his knee fixed. PAST MEDICAL HISTORY: Significant for: 1. Heart disease, status post defibrillator placement. 2. Depression. 3. Osteoarthritis. 4. Decreased eyesight. PAST SURGICAL HISTORY: Includes: 1. Left knee arthroscopy x3. 2. Shoulder surgery. 3. Defibrillator placement. ALLERGIES: None. CURRENT MEDICATIONS: 1. Tylenol. 2. Abilify. 3. Bumetanide. 4. Carvedilol. 5. Zyrtec. 6. Vitamin D3. 7. Fluticasone nasal spray. 8. Multivitamin. 9. Omeprazole. 10. Pregabalin. 11. Simvastatin. 12. Entresto. SOCIAL HISTORY: A 56-year-old male. He is . Does not smoke. FAMILY HISTORY: Noncontributory. REVIEW OF SYSTEMS: Significant for cardiac disease with a pacemaker in place. No chest pain or shor tness of breath. No history of DVT or PE. He has poor eyesight. PHYSICAL EXAMINATION: GENERAL: Shows a pleasant middle-aged male. Looks to be in reasonably good health. HEENT: Benign. NECK: Supple. No lymphadenopathy. LUNGS: Clear to auscultation. HEART: Has a regular rate and rhythm. ABDOMEN: Soft, nontender, nondistended. EXTREMITIES: Grossly neurovascularly intact except as follows. Examination of the left knee revealed patient walks independently. He has got varus alignment to his knee. His range of motion is about 5 degrees short of full extension to 125 degrees of flexion. Th ere is no instability. No pain with hip motion. X-RAYS: X-rays of the left knee reviewed. It shows advanced left knee medial compartment DJD. He h as got complete loss of his medial joint space. He has got subchondral sclerosis. He has got osteop hytes medially. ASSESSMENT: A 56-year-old male with multiple medical comorbidities including a recent cardiac issue requiring a pacemaker, but doing much better. He has got advanced left knee arthritis. He has faile d conservative measures. He would now like to have his left knee fixed. PLAN: We will proceed with left knee replacement. The risks and benefits of this procedure were exp lained to the patient and include but not limited to DVT, PE, , infection, neurological injury, vascular injury, bleeding problem, pain, limited range of motion, stiffness, failure to relieve sympt oms, incomplete relief of symptoms, need for further surgery in the future, fracture, leg length ineq uality, nerve palsy, etc. The patient understands and desires to proceed. Informed consent was obta ined. We talked to him about taking his beta stanley the morning of surgery. He is planning to be discharg ed to home using [facility] program. Job ID: [id number]
[~2022-04-02 06:28] MED LIST changes: +ACETAMINOPHEN 500 MG TAB PO SCH; -ARIP1TAB8 PO; +BUPIVACAINE 0.25% 30 ML VIAL ONE; +BUPIVACAINE 0.5 % 5 MG/1 ML PF 10ML VIAL ONE; +BUPIVACAINE LIPOSOME/PF 266 MG, BUPIVACAINE/EPINEPHRINE 50 ML, SODIUM CHLORIDE 0.9% 30 ... INFIL SCH; -CETI10TA10 PO; +CeleBREX 200 MG CAP PO SCH; +DEXAMETHASONE SOD INJ 4 MG/ML VIAL ONE; +EPINEPHrine INJ 1 MG/ML AMP ONE; +FAMOTIDINE 20 MG TAB PO SCH; -FISHOIL PO; +LR 500ML BOLUS, THEN 15ML/HR IV SCH; +LR 60ML/HR IV SCH; -MELO15TA10 PO; +METOCLOPRAMIDE HCL 10 MG TABLET PO SCH; -OMEP20CA9 PO; -RISP1TAB68 PO; -SIMV20TA5 PO; +Scopolamine 1 MG TDSY TD SCH; +TRANEXAMIC ACID 1,000 MG **IV Intra-op IV SCH; -VENL100T2 PO; -[UNRECOGNIZED DRUG - OTHER] PO
--- NOTE | 2022-04-02 06:54 | History & Physical Bridge Note ---
Date of Service April 02, 2022 History & Physical Bridge Note I have examined the patient, reviewed the History & Physical and in the interval since the performance of the History & Physical I have noted the following changes of clinical significance: no changes noted
[2022-04-02] MEDS ORDERED: MIDAZOLAM HCL 1 MG/ML 2ML VIAL ONE (07:39)
[2022-04-02] MEDS ORDERED: fentaNYL citrate 100 MCG/2 ML VIAL ONE (07:40)
[2022-04-02] MEDS ORDERED: PROPOFOL IV EMULSION 10 MG/ML 20 ML VIAL IV ONE (08:24)
[2022-04-02] MEDS ORDERED: BUPIVACAINE LIPOSOME 1.3% 266 MG/20 ML VIAL ONE (08:43)
[2022-04-02] MEDS ORDERED: SODIUM CHLORIDE 0.9% PF 50 ML VIAL ONE (08:43)
[2022-04-02] MEDS ORDERED: BUPIVACAINE/EPINEPHRINE 0.25% 1:200,000 30 ML VIAL ONE (08:43)
[2022-04-02] MEDS ORDERED: PHENYLEPHRINE HCL 10 MG/ML VIAL ONE (09:08)
[2022-04-02] MEDS ORDERED: ONDANSETRON INJ 2 MG/ML 2 ML VIAL ONE (09:25)
[2022-04-02] MEDS ORDERED: ATROPINE SULFATE 0.1 MG/ML 10ML SYR IV PRN (10:35)
[2022-04-02] MEDS ORDERED: fentaNYL citrate 100 MCG/2 ML VIAL IV PRN (10:35)
[2022-04-02] MEDS ORDERED: ePHEDrine sulfate 50 MG/ML AMP IV PRN (10:35)
[2022-04-02] MEDS ORDERED: ONDANSETRON INJ 2 MG/ML 2 ML VIAL IV PRN ×2 (10:35→12:47)
--- NOTE | 2022-04-02 11:07 | Operative Report ---
PG Post Operative Report Pre & Post Diagnosis Operation Date: 04/02/22 08:50 Pre-Op Diagnosis: Left Knee Osteoarthritis Post-Op Diagnosis: Left Knee Osteoarthritis I identified the patient and participated in the time-out.: Yes Procedure Operation Date: 04/02/22 08:50 Actual Procedures p Left Total Knee Arthroplasty(Left) - Cheko Bernardo MD Surgeon Cheko Bernardo MD Plug Grower Tee Carney PA-C Estimated Blood Loss 50 Findings Consistent with Post-Op Diagnosis Operative findings revealed advanced left knee medial compartment DJD. Extensive grade 4 [id number] disease of the medial compartment. Chronic ACL deficiency. He had a varus deformity to his knee with about a 10 degree flexion contracture. Moderate-sized joint effusion. Fluids 1000 cc Specimens Left knee sent for pathology Drains None Anesthesia Type Spinal MAC Complications none Disposition Accompanied Patient To Recovery: No Indications Patient is a 56-year-old gentleman said a long history of left knee pain discomfort and of a progressive arthritic changes. He has undergone 3 previous knee arthroscopies. He has been through extensive conservative treatment. He is now elected proceed with total knee arthroplasty. Description of Procedure Operative implants consist of: 1. Biomet Vanguard size 72.5 left posterior stabilized femoral component. 2. Biomet size 83 tibial tray. 3. 10 mm posterior stabilized polyethylene insert. 4. 34 x 8 and half all Paller patella. The patient was taken the operating, identified, placed on the operating table supine position protectors were properly padded. IV antibiotics tried by anesthesia team. Spinal anesthetic and abductor canal block had been provided in the holding area. Gomez cath was placed in sterile fashion. Left thigh tent was then placed left lower extremities and prepped and draped in usual sterile fashion. The left leg was elevated exsanguinated with use of an Esmarch in terms playset 300 mmHg. An anterior posterior left knee was then performed to longitudinal incision centered over the patella. Sharp dissection was carried through subcutaneous tissue down the extensor mechanism. A medial parapatellar arthrotomy incision was made. Some subperiosteal dissection was carried out medially. The fat pad was dissected from Neath patella tendon. Lateral patellofemoral ligament was released. Patella subluxated laterally and the knee was flexed. The osteophytes were taken off distal femur. ACL PCL released the distal femur. His ACL was absent. The tibia subluxated anteriorly. External tibial alignment jig was then placed in the anterior face of the tibia and adjusted 16 mm medially. Proximal tibial cut was made remove about a millimeter bone at most from the most deficient aspect of the posterior medial tibial plateau. The tibia sized to a size 83. Attention drawn the femur. The distal femur then with a sharp drill. The intramedullary guide was sized and placed after suctioning the IM canal. A left 6 degree valgus cutting guide was placed. Distal femoral cutting block was pinned in place. Distal femoral cut was made to take an additional 3 mm bone off distal femur. The femur was then sized to a size 72.5. The AP cutting block was pinned parallel to the epicondylar axis which was 4 degrees of external rotation. Anterior cut, anterior chamfer, posterior cut, posterior chamfer cuts were made. The box cutting guide was placed in the just slight lateral box cut was made. The knee was flexed. The remnants of the medial and lateral menisci were excised. The osteophytes were taken off the posterior aspect of the femur. Trial femoral component was placed. Tibial tray was pinned in maximum external rotation and the drill and stem punch were used to create defect in proximal tibia for the tibial tray. Knee was then trialed and the 10 mm insert fit most appropriately. Attention drawn the patella. Nupathe the patella was cleaned of all soft tissues. Patella thickness measured 25 mm in thickness was cut down to 15. Was sized to a size 34 patella. The lug holes were drilled for the 34 patella. The lateral osteophyte was removed. Patella button was placed. Knee was taken through range of motion patella tracked nicely with no thumbs test. Attention drawn to placing permanent components. Nupathe all trial components were removed. Bone plug was placed in the distal femur limit blood loss. Double batch Palacos G cement was mixed. Biomet Vanguard size 72.5 left posterior stabilized femoral component, a size 83 tibial tray, a 10 mm posterior stabilized polyethylene insert, and a 34 x 8 and half all Paller patella then cemented in place. Knee was brought out into full extension total cement hardened. Cement check was then performed. The pericapsular tissues were injected with total 100 cc of combination of 20 cc of Exparel, 30 cc normal s keiko, 50 cc of quarter percent Marcaine with epinephrine. Patient did receive 1 g tranexamic acid. The tourniquet was then let down for final turn time was 62 minutes. Hemostasis reduced electrocautery. Extensor mechanism closed with combination 1 PDS suture #1 Vicryl suture in [id number] fashion. Extensor mechanism was checked and found to be intact. The subcutaneous tissue was then closed with 2 Dexon suture in a buried erupted fashion skin was closed skin donell. Leg was then cleaned and dried and sterile dressed with Xeroform, 4 x 4's, sterile cast padding, Jesus bandage were applied. Patient then transferred to the recovery room in stable condition. Patient tolerated procedure well no complications. Tee Carney, my physician rehab assistant, was present for the entire procedure. His assistance was essential and required for appropriate patient positioning, prepping and draping, surgical exposure, performing the technical details of the operation, placement the implants, closure of the wound, and placement of the sterile bandage. I attest to the content of the Intraoperative Record and any orders documented therein. Any exceptions are noted below.
--- NOTE | 2022-04-02 11:26 | XRay Report ---
XR knee LT 1 or 2V routine HISTORY: 56 years-old Male Surgical Post Op left knee total joint arthroplasty COMPARISON: Knee radiographs 12/14/2021 TECHNIQUE: 2 views of the left knee FINDINGS: Total joint arthroplasty with patellar resurfacing. Anterior midline skin donell are noted along wit h expected postoperative soft tissue swelling with deep tissue air. No acute fracture or unexpected o paque foreign body. IMPRESSION: Total joint arthroplasty with expected postoperative changes. ACT 112: Negative or not required by law. The above report was generated using voice recognition software. It may contain grammatical, syntax o r spelling errors. Electronically signed by: Steve Jiang M.D. 04/02/2022 11:25 AM
[2022-04-02] MEDS ORDERED: MAGNESIUM HYDROXIDE SUSP 30 ML UDC PO PRN (12:47)
[2022-04-02] MEDS ORDERED: oxyCODONE HCL IR 5 MG TAB (IMMEDIATE RELEASE) PO PRN (12:47)
[2022-04-02] MEDS ORDERED: HYDROmorphone INJ 0.5 MG/0.5 ML SYR IV PRN (12:47)
[2022-04-02] MEDS ORDERED: MELATONIN 3 MG TAB PO PRN (12:47)
[2022-04-02] MEDS ORDERED: NALOXONE HCL 0.4 MG/1 ML VIAL/CARP IV PRN (12:47)
[2022-04-02] MEDS ORDERED: KETOROLAC 30 MG/ML VIAL IV SCH ×2 (12:47→19:00)
[2022-04-02] MEDS ORDERED: diphenhydrAMINE Capsule 25 MG CAP PO PRN (12:47)
[2022-04-02] MEDS ORDERED: ALUMINUM/MAGNESIUM SUSP 30 ML UDC PO PRN (12:47)
[2022-04-02] MEDS ORDERED: bisacodyL 10 MG SUPP PR PRN (12:47)
[2022-04-02] MEDS ORDERED: METOCLOPRAMIDE HCL INJ 5 MG/ML 2 ML VIAL IV PRN (12:47)
[2022-04-02] MEDS ORDERED: FLUTICASONE PROPIONATE NA SPR 16 GM BTL NAE PRN (12:47)
[2022-04-02] MEDS ORDERED: dexAMETHasone 10 MG in SYRINGE 0 ML IV SCH (13:00)
[2022-04-02] MEDS ORDERED: KETOROLAC 30 MG/ML VIAL ONE (14:33)
[2022-04-02] MEDS: ACETAMINOPHEN 500 MG TAB PO SCH ×2 (14:34→21:58)
[2022-04-02] MEDS: SODIUM CHLORIDE 0.9% 1000ML 1,000 ML IV SCH ×2 (15:15→20:35)
[2022-04-02] MEDS: Scopolamine CHECK PATCH PLACEMENT SCH ×2 (15:17→22:15)
[2022-04-02] MEDS: busPIRone 5 MG TAB PO SCH ×2 (16:33→20:29)
[2022-04-02] MEDS: ASCORBIC ACID 500 MG TAB PO SCH (16:34)
[2022-04-02] MEDS: hydrOXYzine HCl 25 MG TAB PO SCH ×2 (16:34→20:32)
[2022-04-02] MEDS: ceFAZolin 2000MG 2,000 MG/15 ML SYR IV SCH (16:46)
[2022-04-02] MEDS ORDERED: TRANEXAMIC ACID / 0.7% NACL 1,000 MG/100 ML BAG IV SCH (17:00)
[2022-04-02] MEDS: PANTOprazole 40 MG TAB PO SCH (20:29)
[2022-04-02] MEDS: DOCUSATE SODIUM 100 MG CAP PO SCH (20:29)
[2022-04-02] MEDS: ASPIRIN 81 MG ECTAB PO SCH (20:29)
[2022-04-02] MEDS: carvediloL 25 MG TAB PO SCH (20:32)
[2022-04-02] MEDS: VALSARTAN/SACUBITRIL 103/97MG TAB PO SCH (20:33)
[2022-04-02] MEDS: PREGABALIN 100 MG CAP PO SCH (20:34)
[2022-04-02] MEDS: TAPENTADOL HCL ER 50 MG TABCR PO SCH (20:34)
[2022-04-02] MEDS ORDERED: traZODone HCL 50 MG TAB PO SCH (21:00)
[2022-04-02] MEDS ORDERED: SENNA 8.6 MG TAB PO SCH (21:00)
[2022-04-02] MEDS ORDERED: ARIPiprazole 10 MG TAB PO SCH (21:00)
[2022-04-02] MEDS: KETOROLAC 30 MG/ML VIAL IV SCH (21:59)
[2022-04-03] MEDS: ceFAZolin 2000MG 2,000 MG/15 ML SYR IV SCH (02:22)
[2022-04-03] MEDS: SODIUM CHLORIDE 0.9% 1000ML 1,000 ML IV SCH (02:31)
[2022-04-03] MEDS: KETOROLAC 30 MG/ML VIAL IV SCH ×2 (05:35→10:25)
[2022-04-03] MEDS: ACETAMINOPHEN 500 MG TAB PO SCH (05:35)
[2022-04-03 06:43] LABS: Hematocrit (blood only) 35.4 % (42-52); Hemoglobin 11.6 g/dL (14.0-18.0); Mean Corpuscular Hemoglobin 29.7 pg (25-34); Mean Corpuscular Hgb Conc 32.8 g/dL (32-36); Mean Corpuscular Volume 90.8 fL (80-100); Mean Platelet Volume 10.4 fL (7.4-10.4); Platelet Count 182 K/uL (130-400); RDW Coefficient of Variation 12.9 % (11.5-14.5); RDW Standard Deviation 42.9 fL (36.4-46.3); White Blood Count 13.18 K/uL (4.8-10.8)
[2022-04-03 07:10] LABS: BUN Creatinine Ratio 17.7 (10-20); Calcium 8.5 mg/dl (8.5-10.1); Creatinine Clr Calc Pharmacy 113.4 ml/min; Est GFR (African American) 100.6 ml/min; Est GFR (Non-African American) 86.8 ml/min
[2022-04-03] MEDS: DOCUSATE SODIUM 100 MG CAP PO SCH (07:44)
[2022-04-03] MEDS: PREGABALIN 100 MG CAP PO SCH (07:46)
[2022-04-03] MEDS: TAPENTADOL HCL ER 50 MG TABCR PO SCH (07:46)
[2022-04-03] MEDS: PANTOprazole 40 MG TAB PO SCH (07:46)
[2022-04-03] MEDS: ASCORBIC ACID 500 MG TAB PO SCH (07:46)
[2022-04-03] MEDS: carvediloL 25 MG TAB PO SCH (07:47)
[2022-04-03] MEDS: VALSARTAN/SACUBITRIL 103/97MG TAB PO SCH (07:47)
[2022-04-03] MEDS: hydrOXYzine HCl 25 MG TAB PO SCH (07:47)
[2022-04-03] MEDS: busPIRone 5 MG TAB PO SCH (07:48)
[2022-04-03] MEDS: ASPIRIN 81 MG ECTAB PO SCH (07:49)
[2022-04-03] MEDS: Scopolamine CHECK PATCH PLACEMENT SCH (07:49)
[2022-04-03] MEDS ORDERED: ATORVASTATIN 10 MG TAB PO SCH (09:00)
[2022-04-03] MEDS ORDERED: CETIRIZINE HCL 10 MG TABLET PO SCH (09:00)
[2022-04-03] MEDS ORDERED: DOCUSATE SODIUM/SENNA 50/8.6MG TAB PO SCH (09:00)
[2022-04-03] MEDS ORDERED: TAMSULOSIN HCL 0.4 MG CAP PO SCH (09:00)
[2022-04-03] MEDS ORDERED: SPIRONOLACTONE 25 MG TAB PO SCH (09:00)
[2022-04-03] MEDS ORDERED: CHOLECALCIFEROL 1,000 UNITS 25 MCG TAB PO SCH (09:00)
[2022-04-03] MEDS ORDERED: NON-FORMULARY MEDICATION (Multivitamin tablet) PO SCH (09:00)
[2022-04-03] MEDS ORDERED: LORATADINE 10 MG TAB PO SCH (09:00)
[2022-04-03] MEDS ORDERED: POTASSIUM CHLORIDE CRTAB 20 MEQ TABCR PO SCH (09:00)
[2022-04-03] MEDS ORDERED: BUMETANIDE 1 MG TAB PO SCH (09:00)
[2022-04-03] MEDS ORDERED: MULTIVITAMIN TAB PO SCH (09:00)
--- NOTE | 2022-04-03 11:56 | Progress Notes ---
DATE OF SERVICE: 04/03/2022. SUBJECTIVE: A 56-year-old gentleman postoperative day 1 from a left knee replacement. He is doing q uite well. Pain is controlled. No chest pain or shortness of breath. Therapy went well. He is tiffany dy to go home. OBJECTIVE: VITAL SIGNS: Temperature is 36.4. Vital signs are stable. PHYSICAL EXAMINATION: GENERAL: Shows a pleasant middle-aged male. He is sitting up in his bedside chair, looks comfortabl e. EXTREMITIES: Examination of the left leg reveals the dressing to be clean, dry and intact. He can d orsiflex and plantarflex his foot appropriately. NEUROLOGIC: He is neurologically intact. LABORATORY DATA: Hemoglobin 11.6. Hematocrit 35.4. Electrolytes are stable. ASSESSMENT: A 56-year-old gentleman with multiple medical comorbidities, now postoperative day 1 fro m a left knee replacement. He is doing quite well and remarkably well in therapy. His pain is contro lled. He is neurologically intact. PLAN: 1. DVT prophylaxis including thigh-high TEDs, SCDs, and aspirin twice a day. 2. PT, OT, weightbear as tolerated. Left total knee protocol. 3. Pain control, doing okay with current pain regimen. 4. Disposition: Plan to discharge to home with home health later today. Job ID: [id number]
--- NOTE | 2022-04-06 13:35 | Discharge Summary ---
Date of Service April 06, 2022 Discharge Data Procedures Performed Operation Date: 04/02/22 08:50 Actual Procedures p Left Total Knee Arthroplasty(Left) - Cheko Bernardo MD Hospital Course (1) Status post total left knee replacement: This is a 56 year old patient admitted on 04/02/22 and underwent total knee arthroplasty. He tolerated the procedure well and there were no complications. Transferred to the PACU post op and later to the orthopedic floor for further care. He was given ancef for antibiotic prophylaxis. He was also given MAURISIO stockings, SCDs, and aspirin for DVT prophylaxis. Hemoglobin, hematocrit, and vital signs were monitored during his hospital stay and remained stable. Did not require any blood transfusions. There were no complications during his hospital stay. By post op day #1 the patient was tolerating a regular diet, pain was reasonably controlled with oral pain medicine, and he was participating in physical therapy. On post op day #1 the patient was discharged home and set up with home health care. He was given printed discharge instructions including prescriptions for extra strength tylenol, aspirin, toradol, zofran, flomax, and oxycodone. Continue physical therapy, weight bearing as tolerated. Continue MAURISIO stockings. Follow up approximately 2 weeks post op or sooner if there are problems or concerns. Coding Level of Care Code None Diagnoses Status post total left knee replacement Z96.652
== END 2022-04-03 13:05 | disposition home health service (06) ==
LOC: ASU 06:28 → PACUINP 06:28 → 3E 15:19